=== PATIENT | female | born 1945 | race Caucasian/White ===

== ENCOUNTER 2018-01-29 23:01 | Emergency (ER) | payer MEDICARE, SELFPAY ==
[2018-01-29 23:02] VITALS: BP 180/88; PULSE 80; RESP 14; TEMP 36.9; O2SAT 95; BMI 35.9
--- NOTE | 2018-01-29 23:20 | RAD_ITS ---
STUDY: X-RAY CHEST REASON FOR EXAM: Female, 72 years old. Chest palpitations TECHNIQUE: Single AP portable view of the chest. COMPARISON: 11/14/2013. FINDINGS: The lungs are clear and expanded. There is no demonstrated pleural abnormality. Normal size heart. Normal mediastinum and tiffanie. Normal visualized pulmonary arteries. Normal visualized aortic arch and descending thoracic aorta. Normal visualized thoracic spine. Normal visualized ribs, clavicles, and shoulders. There is no demonstrated abnormality of the visualized soft tissue structures of the upper abdomen. RAD/Chest 1 View (Portable) IMPRESSION: No acute cardiopulmonary disease. Electronically Signed: Chris Daigle DO at 23:38 EST , Service support ,
--- NOTE | 2018-01-29 23:20 | EKG12_ITS ---
Test Reason : CP Blood Pressure : / mmHG Vent. Rate : 071 BPM Atrial Rate : 071 BPM P-R Int : 170 ms QRS Dur : 092 ms QT Int : 412 ms P-R-T Axes : 041 036 053 degrees QTc Int : 447 ms Sinus rhythm with frequent Premature ventricular complexes Otherwise normal ECG Confirmed by SOPHIE SHELTON, LEIGH ANN ([id number]), material expeditor MORAIMA SUN ([id number]) on 02/01/2018 3:02:52 PM Referred By: TRACY Confirmed By:LEIGH ANN BARRIOS MD
[2018-01-29] MEDS: Aspirin 81 MG TAB.CHEW 324 MG PO (23:43)
[2018-01-29 23:49] LABS: Absolute Lymphocyte Count 4.61 X10^3/ul (0.83-4.51); Absolute Neutrophil Count 5.6 X10^3/uL (2.0-7.7); Basophil# 0.03 X10^3/uL; Basophil% 0.2 % (0-1); Eosinophil# 0.39 X10^3/uL; Eosinophils% 3.2 % (0-5); Hematocrit 40.7 % (37-47); Hemoglobin 13.7 g/dl (12.0-15.0); Lymphocyte # 4.61 X10^3/ul (4.0); Lymphocyte % 38.2 % (19-41); Mean Corp Hgb Conc 33.7 g/gl (32-36); Mean Corpuscular Hgb 29.1 pg (27.0-32.0); Mean Corpuscular Volume 86.6 fL (81-99); Mean Platelet Vol. 10.7 fl (6.2-12.0); Monocyte# 1.39 X10^3/uL; Monocyte% 11.5 % (0-10); Neutrophil # 5.63 X10^3/uL (2.7-7.7); Neutrophil % 46.8 % (47-70); Platelet Count 268 K/mm3 (150-450); RBC Distribution Width SD 41.5 fl (35.1-43.9); White Blood Count 12.1 K/mm3 (4.4-11.0)
[2018-01-29 23:57] LABS: POSITIVE COUNT NO; POSITIVE DIFFERENTIAL NO; POSITIVE MORPHOLOGY NO
[2018-01-30 00:18] LABS: Anion Gap 4 (5-15); BUN 24 mg/dL (7-18); BUN/Creat Ratio 35.9 RATIO (10-20); Calcium,Total 8.9 mg/dL (8.5-10.1); Chloride 100 mmol/L (98-107); Creatinine, Serum 0.67 mg/dL (0.55-1.02); EST Glomerular Filtration Rate 92 mL/min (>60); Est Glom Filt Rate - Afr Amer 112 mL/min (>60); Glucose 103 mg/dL (74-106); Sodium Level 137 mmol/L (136-145); Thyroid Stim Hormone (TSH) 3.11 uIU/mL (0.358-3.74)
--- NOTE | 2018-01-30 00:36 | ED.DCSUM_ITS ---
- ER Visit Summary Date of Service: 01/30/18 Chief Complaint: Palpitations History of Present Illness: The patient is a 72 F who sees Anat Goodman. She reports that approximately 1030 this evening stay on the onset of an irregular heartbeat. She denies any chest pain, nausea, diaphoresis, or shortness of breath. No jaw, shoulder, or back pain. She reports that she has had this previously approximately 2 years ago. At that time she underwent a Holter monitor and a stress test that were unremarkable. 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 Review of systems: General: No fever, chills, cold sweats. Cardiovascular: No chest pain, palpitations. Respiratory: No cough, shortness of breath, dyspnea on exertion. Gastrointestinal: No abdominal pain, nausea, vomiting, diarrhea, melena, or hematochezia. Genitourinary: No dysuria, frequency, hematuria. Skin: No rash. Neuro: No headache, numbness, weakness. Physical Examination: Vitals: Stable. Afebrile. General: Well-nourished and well-developed. Head: Normocephalic atraumatic. Neck: Supple, no lymphadenopathy. No JVD. Nontender. Cardiovascular: Irregular rhythm with frequent extrasystoles. No murmurs. Respiratory: No respiratory distress. Clear to auscultation bilaterally. Abdominal: Soft, nontender, nondistended, normal bowel sounds. No guarding, rebound, or peritoneal signs. Back: Nontender. Extremities: Nontender, no edema. Skin: Normal color, no rash. Neurologic: Alert and oriented ?3. Cranial nerves II through XII are intact. Normal strength and sensation. Psych: Normal affect. Test Results: EKG is sinus at 71 with PVCs. CBC is more for white count of 12.1 , 47 7 neutrophils, monocytes of 12. Chem-7 is marked for CO2 of 33, BUN of 24 , and BUN/creatinine ratio of 35.9. Troponin is negative. TSH is normal. Chest x-ray is normal. Emergency Department Course and Treatment: Patient has been observed on the monitor. She is having frequent PVCs. Approximately 10 PVCs per minute. She has had no bigeminy or runs of nonsustained V. tach. Treatment Plan: Patient feels well and would like to go home. She will be discharged instructions to follow-up Anat Goodman in 1-2 days for further evaluation. Return to the emergency part for any worsening symptoms. Disposition: To home in improved and stable condition. Impression: 1. PVCs. This note was generated with [employer] dictation software. It may contain incorrect words, spelling, and punctuation that were not noted in review of the chart prior to signing ED Disposition - Plan for ED Patient: Disposition: Home or Assisted Living Chief Complaint: Palpitations Instructions: Premature Ventricular Contractions Referrals: Anat Ames [Primary Care Provider] - 1-2 Days if not improving
[2018-01-30] MEDS: 0.9% Normal Saline 1,000 ML 999 ML IV (01:19)
[2018-01-30 02:02] VITALS: BP 152/75; PULSE 68; RESP 13; O2SAT 98
[2018-01-30 02:34] VITALS: BP 166/92; PULSE 68; RESP 19; O2SAT 97
== END 2018-01-30 02:35 | disposition home or self-care (01) ==
PROVIDERS: Emergency Provider Emergency Medicine; Family Provider Nurse Practitioner; PCP Nurse Practitioner
DX: I49.3 Ventricular premature depolarization (principal); I10 Essential (primary) hypertension; Z79.82 Long term (current) use of aspirin; Z79.899 Other long term (current) drug therapy; Z82.49 Family history of ischemic heart disease and other diseases of the circulatory system
CPT/HCPCS: 71045; 80048; 84443; 84484; 85025; 93005; 96360; 99284; J7030; A4216

== ENCOUNTER → 2018-02-01 10:41 | Outpatient (CLI) | payer MEDICARE, SELFPAY | PROVIDERS: Family Provider Nurse Practitioner; PCP Nurse Practitioner; Visit Provider Nurse Practitioner | DX: I49.3 Ventricular premature depolarization (principal) | CPT/HCPCS: 93225; 93226 ==

== ENCOUNTER → 2018-02-19 12:50 | Outpatient (CLI) | payer MEDICARE, SELFPAY ==
--- NOTE | 2018-02-19 12:52 | ECHOL_ITS ---
Reason For Study: PVCs Procedure This was a limited 2D transthoracic echocardiogram. The study was technically difficult. Due to body habitus. Exam performed in department. Left Ventricle Normal LV size. Left ventricular systolic function is normal. The estimated ejection fraction is 60 %. No regional wall motion abnormalities noted. Mitral Valve Normal mitral valve. Tricuspid Valve Normal tricuspid valve. Trivial tricuspid valve insufficiency. Unable to estimate RV systolic pressure/pulmonary artery pressure due to technically difficult study. Aortic Valve Trisinus/trileaflet aortic valve. Pulmonic Valve Normal pulmonic valve. Great Vessels Normal aortic root. The pulmonary artery is normal size. Normal inferior vena cava. Pericardium/Pleural No pericardial effusion. MMode/2D Measurements & Calculations LVIDd: 3.9 cm IVSd: 1.6 cm Ao root diam: 2.7 cm LVIDs: 2.7 cm LVPWd: 1.4 cm RVDd: 3.3 cm FS: 31.9 % LAV(MOD-bp): 86.3 ml EDV(MOD-sp4): 86.6 ml EDV(MOD-sp2): 48.3 ml LAV(MOD-bp) Indexed: 42.9 ml/m2 ESV(MOD-sp4): 34.6 ml EF(MOD-sp2): 58.4 % LAV(MOD-sp2): 88.7 ml EF(MOD-sp4): 60.0 % LAV(MOD-sp4): 84.5 ml SV(MOD-sp4): 51.9 ml SV(MOD-sp2): 28.2 ml LA A4 area: 23.8 cm2 RA A4 area: 17.1 cm2 Interpretation Summary Normal LV size. Left ventricular systolic function is normal. The estimated ejection fraction is 60 %. Trivial tricuspid valve insufficiency. The study was technically difficult. The study was technically limited. Ordering Physician: Anat Ames Referring Physician: Anat Ames Performed By: Shamika Smith, PRICILLACS, RVT
== END ==
PROVIDERS: Family Provider Nurse Practitioner; PCP Nurse Practitioner; Visit Provider Nurse Practitioner
DX: I49.3 Ventricular premature depolarization (principal)
CPT/HCPCS: 93308

== ENCOUNTER → 2018-03-05 08:05 | Outpatient (CLI) | payer MEDICARE, SELFPAY ==
[2018-03-05 08:40] LABS: Mucous, Urine 0 SEEN /hpf (<or=2+); Red Blood Cells-Urine 0 SEEN /hpf (0-5)
[2018-03-05 08:54] LABS: Absolute Lymphocyte Count 3.15 X10^3/ul (0.83-4.51); Absolute Neutrophil Count 3.9 X10^3/uL (2.0-7.7); Basophil# 0.01 X10^3/uL; Basophil% 0.1 % (0-1); Eosinophil# 0.22 X10^3/uL; Eosinophils% 2.8 % (0-5); Hematocrit 39.3 % (37-47); Lymphocyte # 3.15 X10^3/ul (4.0); Lymphocyte % 40.8 % (19-41); Mean Corp Hgb Conc 33.1 g/gl (32-36); Mean Corpuscular Hgb 28.8 pg (27.0-32.0); Mean Corpuscular Volume 87.1 fL (81-99); Mean Platelet Vol. 10.1 fl (6.2-12.0); Monocyte# 0.42 X10^3/uL; Monocyte% 5.4 % (0-10); Neutrophil # 3.91 X10^3/uL (2.7-7.7); Neutrophil % 50.8 % (47-70); POSITIVE COUNT NO; POSITIVE DIFFERENTIAL NO; POSITIVE MORPHOLOGY NO; Platelet Count 228 K/mm3 (150-450); RBC Distribution Width CV 13.2 % (11.6-14.6); RBC Distribution Width SD 41.8 fl (35.1-43.9); Red Blood Count 4.51 M/mm3 (4.2-5.4); White Blood Count 7.7 K/mm3 (4.4-11.0)
[2018-03-05 08:55] LABS: Color, Urine Yellow (Yellow); Glucose, Dipstick Normal (Normal); Ketone-Dipstick Negative (Negative); Leukocyte Esterase-Dipstick 500 /ul (Negative); Nitrite-Dipstick Negative (Negative); Occult Blood-Urine 10 /ul (Negative); Protein-Dipstick 15 mg/dl (Negative); Specific Gravity, Urine 1.015 (1.002-1.030); Urine Bilirubin Dipstick Negative (Negative); Urine Clarity Sl. Cloudy (Clear); Urine Urobilinogen Normal (Normal); Urine pH 6.5 (5.0 - 8.0)
[2018-03-05 09:01] LABS: White Blood Cells 25-50 SEEN /hpf (0-5)
[2018-03-05 09:07] LABS: Squamous Epithelial Cells - UA 10-25 SEEN /hpf (5-10)
[2018-03-05 09:08] LABS: Bacteria 2+ /hpf (None Seen); Other Crystals-Urine 1+ /hpf (None Seen)
[2018-03-05 09:28] LABS: ALB/GLOB Ratio 0.7 RATIO (0.9-2.4); AST(SGOT) 18 U/L (15-37); Alanine Aminotransfer ALT/SGPT 24 U/L (13-56); Albumin, Serum 3.2 g/dL (3.2-5.0); Alkaline Phosphatase 110 U/L (45-117); Anion Gap 6 (5-15); BUN 15 mg/dL (7-18); BUN/Creat Ratio 20.4 RATIO (10-20); Calcium,Total 8.2 mg/dL (8.5-10.1); Chloride 104 mmol/L (98-107); Cholesterol 145 mg/dL (200); Creatinine, Serum 0.74 mg/dL (0.55-1.02); EST Glomerular Filtration Rate 83 mL/min (>60); Est Glom Filt Rate - Afr Amer 100 mL/min (>60); Globulin 4.3 g/dL (2.2-4.2); Glucose 94 mg/dL (74-106); High Density Lipoprotein 58 mg/dL; Potassium 4.1 mmol/L (3.5-5.1); Protein, Total 7.5 g/dL (6.4-8.2); Sodium Level 141 mmol/L (136-145); Triglycerides 83 mg/dL; Very Low Density Lipoprotein 17 mg/dL (5-40)
[2018-03-05 10:10] LABS: Microalbumin,Random Urine 16.9 mg/L (NO RANGE EST.); Microalbumin:Creatinine Ratio 7.5 mg/g CRE (<30 mg/g CRE)
[2018-03-06 16:12] LABS: PROEL- A/G Ratio 0.8 (0.7-1.7); PROEL- Albumin 3.3 g/dL (2.9-4.4); PROEL- Alpha-1 Globulin 0.3 g/dL (0.0-0.4); PROEL- Alpha-2 Globulin 0.8 g/dL (0.4-1.0); PROEL- Beta Globulin 1.2 g/dL (0.7-1.3); PROEL- Gamma Globulin 1.5 g/dL (0.4-1.8); PROEL- Globulin, Total 3.9 g/dL (2.2-3.9); PROEL- TOTAL PROTEIN 7.2 g/dL (6.0-8.5)
== END ==
PROVIDERS: Family Provider Nurse Practitioner; PCP Nurse Practitioner; Visit Provider Nurse Practitioner
DX: I10 Essential (primary) hypertension (principal); D72.829 Elevated white blood cell count, unspecified
CPT/HCPCS: 36415; 80053; 80061; 81001; 82043; 82570; 84165; 85025

== ENCOUNTER → 2018-06-24 10:05 | Outpatient (CLI) | payer MEDICARE, SELFPAY ==
[2018-06-24 11:05] LABS: ALB/GLOB Ratio 0.7 RATIO (0.9-2.4); AST(SGOT) 23 U/L (15-37); Alanine Aminotransfer ALT/SGPT 31 U/L (13-56); Albumin, Serum 3.3 g/dL (3.2-5.0); Alkaline Phosphatase 136 U/L (45-117); Anion Gap 2 (5-15); BUN 21 mg/dL (7-18); BUN/Creat Ratio 29.3 RATIO (10-20); Calcium,Total 8.8 mg/dL (8.5-10.1); Chloride 102 mmol/L (98-107); Creatinine, Serum 0.72 mg/dL (0.55-1.02); EST Glomerular Filtration Rate 85 mL/min (>60); Est Glom Filt Rate - Afr Amer 103 mL/min (>60); Globulin 4.6 g/dL (2.2-4.2); Glucose 96 mg/dL (74-106); Potassium 4.2 mmol/L (3.5-5.1); Protein, Total 7.9 g/dL (6.4-8.2); Sodium Level 138 mmol/L (136-145); Thyroid Stim Hormone (TSH) 1.62 uIU/mL (0.358-3.74)
== END ==
PROVIDERS: Family Provider Nurse Practitioner; PCP Nurse Practitioner; Visit Provider Nurse Practitioner
DX: I10 Essential (primary) hypertension (principal)
CPT/HCPCS: 36415; 80053; 84443

== ENCOUNTER → 2018-08-13 12:25 | Outpatient (CLI) | payer MEDICARE, SELFPAY ==
--- NOTE | 2018-08-13 12:27 | BI_ITS ---
MAMMOGRAPHY - BILATERAL SCREENING REASON FOR EXAM: Female, 72 years old. Routine annual screening examination. PERTINENT HISTORY: Non-contributory. TECHNIQUE: Digital bilateral breast nicole (3D mammographic acquisition) in the CC and MLO projections. 2-D mediolateral oblique (MLO) and craniocaudad (CC) views of both breasts were obtained. CAD: Full Field Digital Mammography with Computer Added Detection was performed. COMPARISON: Comparison is made with prior study dated July 09, 2017 and July 04, 2016. FINDINGS: Breast Composition: The breasts are heterogeneously dense, which may obscure small masses. There are no dominant masses or suspicious calcifications. No other significant abnormalities are identified. There has been no significant change since the prior study. BI/SCREENING MAMM (CAD), BILAT IMPRESSION: Stable bilateral screening mammogram. Yearly follow-up mammogram recommended. (A) ASSESSMENT CATEGORY: BIRADS Category 1: Negative. A letter regarding these results will be sent to the patient by the facility within 30 days. Approximately 10% of breast cancers are not detected by mammography. A normal mammogram should not delay biopsy of a clinically suspicious abnormality. [id number] Electronically Signed: Mike Agustin MD at 14:09 EDT Tel [phone], Service support ,
== END ==
PROVIDERS: Family Provider Nurse Practitioner; PCP Nurse Practitioner; Visit Provider Nurse Practitioner
DX: Z12.31 Encounter for screening mammogram for malignant neoplasm of breast (principal)
CPT/HCPCS: 77063; 77067

== ENCOUNTER → 2018-11-27 07:26 | Outpatient (CLI) | payer MEDICARE, SELFPAY ==
[2018-03-06 14:34] VITALS: BMI 40.4
[2018-11-27 09:28] LABS: ALB/GLOB Ratio 0.7 RATIO (0.9-2.4); AST(SGOT) 19 U/L (15-37); Alanine Aminotransfer ALT/SGPT 26 U/L (13-56); Albumin, Serum 3.2 g/dL (3.2-5.0); Alkaline Phosphatase 131 U/L (45-117); Anion Gap 8 (5-15); BUN 17 mg/dL (7-18); BUN/Creat Ratio 26.1 RATIO (10-20); Calcium,Total 8.7 mg/dL (8.5-10.1); Chloride 101 mmol/L (98-107); Cholesterol 162 mg/dL (200); Creatinine, Serum 0.65 mg/dL (0.55-1.02); EST Glomerular Filtration Rate 95 mL/min (>60); Est Glom Filt Rate - Afr Amer 115 mL/min (>60); Globulin 4.5 g/dL (2.2-4.2); Glucose 108 mg/dL (74-106); High Density Lipoprotein 68 mg/dL; Potassium 4.1 mmol/L (3.5-5.1); Protein, Total 7.7 g/dL (6.4-8.2); Sodium Level 139 mmol/L (136-145); Thyroid Stim Hormone (TSH) 1.69 uIU/mL (0.358-3.74); Triglycerides 84 mg/dL; Very Low Density Lipoprotein 17 mg/dL (5-40)
== END ==
PROVIDERS: Family Provider Nurse Practitioner; PCP Nurse Practitioner; Referring Provider Nurse Practitioner; Visit Provider Nurse Practitioner
DX: Z00.00 Encounter for general adult medical examination without abnormal findings (principal); I10 Essential (primary) hypertension
CPT/HCPCS: 36415; 80053; 80061; 84443

== ENCOUNTER → 2019-05-13 06:10 | Outpatient (CLI) | payer MEDICARE, SELFPAY ==
--- NOTE | 2019-05-13 11:42 | STRESSREP ---
Stress Test Report Date: 05-13-19 Procedure: Exercise tolerance test/imaging study Indications: CAD Consent: Per the patient Procedure: The patient exercised on a Wei protocol for 6 minutes of completing stage II achieving a peak heart rate of 144 bpm (97 % predicted maximal heart rate) with a peak blood pressure 194/92 mmHg and a peak MET capacity of 7 METs. The baseline ECG demonstrated normal sinus rhythm. The peak exercise ECG demonstrated [id number] nonspecific ST segment variability. There were no cardiac dysrhythmias pretest, during exercise, or recovery. The functional capacity was considered average. There was no complaint of chest discomfort during exercise or recovery. The examination was discontinued secondary to dyspnea. Impression: 1. Technically adequate (percent predicted maximal heart rate greater than 85%) exercise tolerance test 2. Peak exercise ECG with [id number] nonspecific ST segment variability 3. There were no cardiac dysrhythmias pretest, during exercise, or recovery 4. Nuclear images pending Myocardial perfusion imaging study: Technique: The patient was injected with 11.9 mCi of technetium 99m Cardiolite and subsequently rest SPECT Cardiolite nuclear imaging was obtained in the horizontal long, vertical long, and short axis views. The patient exercised on a Wei protocol for 6 minutes of completing stage II achieving a peak heart rate of 144 bpm (97 % predicted maximal heart rate) with a peak blood pressure 194/92 mmHg and a peak MET capacity of 7 METs. The patient was injected with 33.7 mCi of technetium 99m Cardiolite and subsequently stress SPECT Cardiolite nuclear imaging was obtained in the horizontal long, vertical long, and short axis views. A gated Cardiolite study at peak stress was obtained. Interpretation: Rest and stress SPECT Cardiolite nuclear imaging status post realignment, normalization, and attenuation correction, demonstrates relative uniform tracer uptake and myocardial perfusion appearing within normal limits. There is end systolic thickening and brightening. The gated Cardiolite study demonstrates myocardial thickening and inward wall motion. The reported LVEF is 71 %. Impression: 1. Rest and stress SPECT Cardiolite nuclear imaging demonstrate relative uniform tracer uptake and myocardial perfusion appearing within normal limits. 2. The gated Cardiolite study reports an LVEF of 71 %. This note was generated with [employer] ([employer]ation software. It may contain incorrect words, spelling, and punctuation that were not noted in checking the note before signing.
== END ==
PROVIDERS: Family Provider Nurse Practitioner; PCP Nurse Practitioner; Referring Provider Nurse Practitioner; Visit Provider Nurse Practitioner
DX: I25.10 Atherosclerotic heart disease of native coronary artery without angina pectoris (principal)
CPT/HCPCS: 78452; 93017; A9500; A4216

== ENCOUNTER → 2019-08-19 14:06 | Outpatient (CLI) | payer MEDICARE, SELFPAY ==
[2019-05-20 11:07] VITALS: BMI 39.3
--- NOTE | 2019-08-19 14:09 | BI_ITS ---
MAMMOGRAPHY - BILATERAL SCREENING REASON FOR EXAM: Female, 73 years old. Routine annual screening examination. PERTINENT HISTORY: Non-contributory. Remote left breast aspiration. TECHNIQUE: Digital bilateral breast monserrat (3D mammographic acquisition) in the CC and MLO projections. 2-D mediolateral oblique (MLO) and craniocaudad (CC) views of both breasts were obtained. CAD: Full Field Digital Mammography with Computer Added Detection was performed. COMPARISON: Comparison is made with prior study dated August 13, 2018 and July 09, 2017. FINDINGS: Breast Composition: The breasts are heterogeneously dense, which may obscure small masses. There are no dominant masses or suspicious calcifications. Stable small benign-appearing bilateral axillary lymph nodes. Stable bilateral secretory calcifications. No other significant abnormalities are identified. There has been no significant change since the prior study. BI/SCREEN MAMM (CAD) W/MONSERRAT BILAT IMPRESSION: Stable bilateral screening mammogram. Yearly follow-up mammogram recommended. (A) ASSESSMENT CATEGORY: BIRADS Category 2: Benign. A letter regarding these results will be sent to the patient by the facility within 30 days. Approximately 10% of breast cancers are not detected by mammography. A normal mammogram should not delay biopsy of a clinically suspicious abnormality. [id number] Electronically Signed: Mike Agustin, at 15:21 EDT , Service support ,
== END ==
PROVIDERS: Family Provider Nurse Practitioner; PCP Nurse Practitioner; Referring Provider Nurse Practitioner; Visit Provider Nurse Practitioner
DX: Z12.31 Encounter for screening mammogram for malignant neoplasm of breast (principal)
CPT/HCPCS: 77063; 77067

== ENCOUNTER → 2019-12-30 07:49 | Outpatient (CLI) | payer MEDICARE, SELFPAY ==
[2019-11-25 08:31] VITALS: BMI 38.6
--- NOTE | 2019-12-30 07:52 | CDU_ITS ---
Reason For Study: Vision changes Rt. Velocities/BP Lt. Velocities/BP Prox CCA 86.5/16 cm/sec. Prox CCA 99.8/22.5 cm/sec. Mid CCA 78.6/14.7 cm/sec. Mid CCA 83.9/17.6 cm/sec. Dist CCA 72.1/18.6 cm/sec. Dist CCA 61.8/11.4 cm/sec. Prox ICA 59.7/16.8 cm/sec. Prox ICA 53.2/13.9 cm/sec. Mid ICA 69.5/16.8 cm/sec. Mid ICA 55.6/16.3 cm/sec. Dist ICA 97.4/29.8 cm/sec. Dist ICA 70.4/22.5 cm/sec. Rt. ICA/CCA = 1.2. Lt. ICA/CCA = 0.8. Prox ECA 121.1/13.3 cm/sec. Prox ECA 83.9/11.4 cm/sec. Rt. Vert. 42.8/13.5 cm/sec. Lt. Vert. 66.3/14.6 cm/sec. Right Extracranial There is intimal thickening but no significant atherosclerotic plaque noted in the right common carotid artery. There is heterogeneous, irregular atherosclerotic plaque noted in the right internal carotid artery. There is intimal thickening but no significant atherosclerotic plaque noted in the right external carotid artery. Antegrade flow is noted in the right vertebral artery. Left Extracranial There is intimal thickening but no significant atherosclerotic plaque noted in the left common carotid artery. There is heterogeneous, smooth atherosclerotic plaque noted in the left internal carotid artery. There is intimal thickening but no significant atherosclerotic plaque noted in the left external carotid artery. Antegrade flow is noted in the left vertebral artery. Procedure Carotid Duplex [id number]. Exam performed in department. Interpretation Summary Mild (<50%) stenosis right extracranial internal carotid. Mild (<50%) stenosis left extracranial internal carotid. Flow within the vertebral arteries is antegrade bilaterally. Ordering Physician: Anat Ames Referring Physician: Anat Ames Performed By: Elisa Seals RVT
== END ==
PROVIDERS: PCP Nurse Practitioner; Referring Provider Nurse Practitioner; Visit Provider Nurse Practitioner
DX: R42 Dizziness and giddiness (principal); H53.9 Unspecified visual disturbance
CPT/HCPCS: 93880

== ENCOUNTER → 2020-03-22 07:09 | Outpatient (CLI) | payer MEDICARE, SELFPAY ==
[2019-11-25 08:31] VITALS: BMI 38.6
[2020-03-22 08:16] LABS: Absolute Lymphocyte Count 3.98 X10^3/uL (0.83-4.51); Absolute Neutrophil Count 4.4 X10^3/uL (2.0-7.7); Basophil# 0.04 X10^3/uL; Basophil% 0.4 % (0-1); Eosinophil# 0.25 X10^3/uL; Eosinophils% 2.6 % (0-5); Hematocrit 42.3 % (37-47); Hemoglobin 13.9 g/dL (12.0-15.0); Lymphocyte # 3.98 X10^3/ul (4.0); Lymphocyte % 41.3 % (19-41); Mean Corp Hgb Conc 32.9 g/dL (32-36); Mean Corpuscular Hgb 29.2 pg (27.0-32.0); Mean Corpuscular Volume 88.9 fL (81-99); Mean Platelet Vol. 11.1 fl (6.2-12.0); Monocyte% 9.3 % (0-10); NRBC Flagged by Analyzer 0 % (0-5); Neutrophil # 4.42 X10^3/uL (2.7-7.7); Platelet Count 296 K/mm3 (150-450); RBC Distribution Width CV 12.5 % (11.6-14.6); RBC Distribution Width SD 40.9 fl (35.1-43.9); Red Blood Count 4.76 M/mm3 (4.2-5.4); White Blood Count 9.6 K/mm3 (4.4-11.0)
[2020-03-22 08:21] LABS: ALB/GLOB Ratio 0.8 RATIO (0.9-2.4); AST(SGOT) 17 U/L (15-37); Alanine Aminotransfer ALT/SGPT 24 U/L (13-56); Albumin, Serum 3.4 g/dL (3.2-5.0); Alkaline Phosphatase 99 U/L (45-117); Anion Gap 4 (5-15); BUN 18 mg/dL (7-18); BUN/Creat Ratio 27.5 RATIO (10-20); Calcium,Total 9.2 mg/dL (8.5-10.1); Chloride 103 mmol/L (98-107); Cholesterol 155 mg/dL (200); Creatinine, Serum 0.66 mg/dL (0.55-1.02); EST Glomerular Filtration Rate 94 mL/min (>60); Est Glom Filt Rate - Afr Amer 114 mL/min (>60); Globulin 4.3 g/dL (2.2-4.2); Glucose 102 mg/dL (74-106); High Density Lipoprotein 66 mg/dL; Potassium 3.9 mmol/L (3.5-5.1); Protein, Total 7.7 g/dL (6.4-8.2); Sodium Level 139 mmol/L (136-145); Triglycerides 74 mg/dL; Very Low Density Lipoprotein 15 mg/dL (5-40)
[2020-03-22 08:47] LABS: Vitamin D,25 Hydroxy 47.4 ng/mL
== END ==
PROVIDERS: PCP Nurse Practitioner; Referring Provider Nurse Practitioner; Visit Provider Nurse Practitioner
DX: I10 Essential (primary) hypertension (principal); E55.9 Vitamin D deficiency, unspecified
CPT/HCPCS: 36415; 80053; 80061; 82306; 85025

== ENCOUNTER → 2020-09-02 14:37 | Outpatient (CLI) | payer MEDICARE, SELFPAY ==
[2020-07-09 09:02] VITALS: BMI 38.6
--- NOTE | 2020-09-02 14:50 | BI_ITS ---
MAMMOGRAPHY - BILATERAL SCREENING REASON FOR EXAM: Female, 74 years old. Routine annual screening examination. PERTINENT HISTORY: NO FAM HX - LT ASPIRATION IN THE 1970S TECHNIQUE: Digital bilateral breast monserrat (3D mammographic acquisition) in the CC and MLO projections. 2-D mediolateral oblique (MLO) and craniocaudad (CC) views of both breasts were obtained. CAD: Full Field Digital Mammography with Computer Added Detection was performed. COMPARISON: 08/19/2019 and 08/13/2018. FINDINGS: Breast Composition: The breasts are heterogeneously dense, which may obscure small masses. There are no dominant masses or suspicious calcifications. No other significant abnormalities are identified. BI/SCREEN MAMM (CAD) W/MONSERRAT BILAT IMPRESSION: Stable bilateral screening mammogram. Yearly follow-up mammogram recommended. (A) ASSESSMENT CATEGORY: BIRADS Category 2: Benign. A letter regarding these results will be sent to the patient by the facility within 30 days. Approximately 10% of breast cancers are not detected by mammography. A normal mammogram should not delay biopsy of a clinically suspicious abnormality. [id number] Electronically Signed: Pranav Blanco, at 16:30 EDT Tel , Service support ,
== END ==
PROVIDERS: PCP Nurse Practitioner; Referring Provider Nurse Practitioner; Visit Provider Nurse Practitioner
DX: Z12.31 Encounter for screening mammogram for malignant neoplasm of breast (principal)
CPT/HCPCS: 77063; 77067

== ENCOUNTER 2020-10-13 12:22 | Outpatient (RCR) | payer MEDICARE, SELFPAY ==
[2020-07-09 09:02] VITALS: BMI 38.6
--- NOTE | 2020-10-13 13:59 | HP.PTEVAL_ITS ---
Patient's Visit Information CHUCKY LE is a 74 year old F referred to Physical Therapy by CHARITY Tran with a diagnosis of Left Knee Pain. Date of Evaluation: 10/13/20 Physical Therapist: Idania Rosario DPT - Visit Plan Frequency: 2x /Week Duration: 4 Weeks Plan: Focus on LE and core strength/stabilization. *Would like to be treated in a room secondary to no masks in gym- assess comfort level - Subjective Prior to February she walked daily 30 min- in February she noticed tightness and swelling in the left knee. In April she saw Dr. Osorio who reported she had a Bakers Cyst- did x-rays and told her to take Ibuprofen. In June it buckled so she saw Td for a second opinion- Bakers Cyst- no meniscal tear- lose weight and ride a bike. Here she is September- she reports it feels tight but she not resumed her walking. She has pain on the medial aspect of the medial joint line. X-rays showed moderate OA. She did not have injections. The pain is sharp and shooting. The sharp pains happen more at night when she is in bed- normally once a day. Not always when she is rolling side to side. Worst: 5/10 She reports the pain is stabbing. Best: 0/10. Eases: rubs it down a little bit- but the pain goes away quickly. No radiating pain. No N/T. The buckling only happened 1x and has not happened again- does not feel unstable. No problems going up/down the stairs- does them multiple times a day. Sleep: disturbed- side sleeper- does not sleep with a pillow between her knees. No trauma- no back problems. PMHx/Meds: No change since saw MD - Objective Posture: FH, RS- can correct with verbal cues but does not maintain. Gait: no deviation noted. Stairs: asc/desc 8 recip with 1 HR no deviation noted. HR/TR: able with UE A. SLS: weight shift but unable to SLS for more than 3 s econds. Sensation: WNL. ROM: 0-125 degrees. Strength: Core: fair minus, Hip: 4/5 throughout, Knee: 5/5, Ankle: 5/5. Flex: HS: mild Quad: mild - Goals Goal 1:: Patient will be I with HEP and progression Goal Time Frame: 4-6 Weeks Goal 2:: Patient will report no pain for 1 week in the left knee Goal Time Frame: 4-6 Weeks Goal 3:: Patient will maintain proper posture t/o tx session to demo increased core s/s Goal Time Frame: 4-6 Weeks Goal 4:: Patient will SLS for 10 sec without LOB Goal Time Frame: 4-6 Weeks - Rehabilitation Potential Physical Therapy Diagnosis: Patient presents with hypomobility- she has muscular imbalance and decrease endurnace in the core and LE leading to increased pain while resting at night Rehabilitation Potential: Good - Anticipated Interventions Patient/Client Instruction: Educate patient on: Benefits of Fitness Program Therapeutic Exercise to Include: Strength training, Endurance training, Balance training, Agility training, Body mechanics, Postural training, Flexibilty training, Gait and locomotor training, Neuromotor development, Dynamic Lumbar Stabilization, Scapular Strength/Stabilization TENS: Yes Cryotherapy (ice pack, ice massage): Yes Thermo therapy (hot pack): Yes Ultrasound (thermal/non thermal): Yes For the Purpose of:: To improve muscle performance and motor function Thank you for the opportunity to evaluate your patient. For Medicare and Medicare HMO plans, please review the plan of care and approve it. It will need to be FAXED BACK to us at [phone] for Medicare purposes. For Medicare only, by signing this I certify the plan of care. Please let me know if there are questions or concerns regarding this plan of care. Physician Signature: Date:
--- NOTE | 2020-11-04 11:26 | HP.PT.NRP ---
CHUCKY LE was seen in my office for initial evaluation on 10/13/20. The following Plan of Care was established for this patient: Initial Frequency: 2x /Week Initial Duration: 4 Weeks Patient/Client Instruction: Educate patient on: Benefits of Fitness Program Therapeutic Exercise to Include: Strength training, Endurance training, Balance training, Agility training, Body mechanics, Postural training, Flexibilty training, Gait and locomotor training, Neuromotor development, Dynamic Lumbar Stabilization, Scapular Strength/Stabilization TENS: Yes Cryotherapy (ice pack, ice massage): Yes Thermo therapy (hot pack): Yes Ultrasound (thermal/non thermal): Yes For the Purpose of:: To improve muscle performance and motor function This patient was last seen in our office . Pertinent comments regarding their Physical therapy will appear below: Patient fell and fractured UE. Will follow up with PCP and return to PT for further evaluation as needed. Discharge at this time. At this point I will be discontinuing this patient from physical therapy. I would be happy to see this patient again in the future if found appropriate by the physician. Thank you! WANDA JacksonT
== END 2020-10-13 19:00 | disposition home or self-care (01) ==
LOC: PT 12:22
PROVIDERS: PCP Nurse Practitioner; Referring Provider Nurse Practitioner; Visit Provider Nurse Practitioner
DX: M25.562 Pain in left knee (principal)
CPT/HCPCS: 97110; 97161

== ENCOUNTER → 2020-10-15 16:05 | Outpatient (CLI) | payer MEDICARE, SELFPAY ==
[2020-07-09 09:02] VITALS: BMI 38.6
--- NOTE | 2020-10-15 16:14 | MRI_ITS ---
STUDY: MRI LEFT KNEE REASON FOR EXAM: Female, 74 years old. Left knee pain TECHNIQUE: Standardized fat and water weighted pulse sequences were obtained in all 3 orthogonal planes. COMPARISON: None. FINDINGS: Moderate size horizontal tear is present in the inner one third aspect root insertion of the posterior horn of medial meniscus. Intrasubstance signal abnormality is present in the remnant and in the body of the medial meniscus. Normal anterior horn. There is diffuse, moderate to full thickness articular cartilage loss of the medial femorotibial compartment. There is mild osteoarthritic spur formation of the medial knee compartment. Normal medial collateral ligamentous complex (MCL). Normal distal semimembranosus, gracilis and semitendinosus tendons. Normal lateral meniscus. There is diffuse, less than 50% thickness articular cartilage loss of the lateral femorotibial compartment. There is mild osteoarthritic spur formation of the lateral knee compartment. Normal proximal tibiofibular articulation. Normal lateral collateral (fibular) ligament. Normal popliteus tendon. Normal biceps femoris tendon. Normal anterior cruciate ligament (ACL). Normal posterior cruciate ligament (PCL). Normal congruent patellofemoral articulation. There is diffuse, full thickness articular cartilage loss of the patellofemoral compartment in addition the subchondral cystic changes and cortical spurring. Normal medial and lateral patellar retinaculum. Normal quadriceps tendon. Normal patellar tendon. Normal Hoffa''s fat pad. A small joint effusion is present. Mild subcutaneous edema is also present. The soft tissues are unremarkable. The otherwise visualized osseous structures are unremarkable. MRI/Lower Ext Joint Only (Routine) IMPRESSION: 1. Moderate size horizontal tear is present in the inner one third aspect root insertion of the posterior horn of medial meniscus. Intrasubstance signal abnormality is present in the remnant and in the body of the medial meniscus. Normal anterior horn. 2. Tricompartmental osteoarthritis 3. Moderate to full-thickness loss of cartilage in the medial and patellofemoral compartments. Electronically Signed: Cm South MD at 23:21 EST , Service support ,
== END ==
PROVIDERS: PCP Nurse Practitioner; Referring Provider Nurse Practitioner; Visit Provider Nurse Practitioner
DX: M17.12 Unilateral primary osteoarthritis, left knee (principal)
CPT/HCPCS: 73721

== ENCOUNTER 2020-10-16 13:52 | Emergency (ER) | payer MEDICARE, SELFPAY ==
[2020-07-09 09:02] VITALS: BMI 38.6
[2020-10-16 13:53] VITALS: BP 178/88; PULSE 70; RESP 16; TEMP 36.1; O2SAT 98; BMI 37.5
--- NOTE | 2020-10-16 14:21 | RAD_ITS ---
STUDY: X-RAY - LEFT ELBOW REASON FOR EXAM: Female, 74 years old. FALL TODAY, PAIN, MAINLY ELBOW AREA TECHNIQUE: 3 view(s) of the elbow. COMPARISON: None. FINDINGS: There is an acute fracture of the proximal radius noted. Elbow joint is poorly included on this examination however. Elbow joint effusion. IMPRESSION: Acute fracture through the proximal radius. Elbow joint effusion. Electronically Signed: Neto Alvarado, at 15:03 EST Tel , Service support , RAD/Elbow min 3 Views
--- NOTE | 2020-10-16 14:21 | RAD_ITS ---
STUDY: X-RAY - LEFT HUMERUS REASON FOR EXAM: Female, 74 years old. FALL TODAY, PAIN, MAINLY ELBOW AREA TECHNIQUE: 3 view(s) of the humerus. COMPARISON: None. FINDINGS: 3 views of the left humerus demonstrate no evidence for acute fractures or dislocation. Overall alignment appears satisfactory. Glenohumeral joint is grossly intact. IMPRESSION: No evidence for acute left-sided humeral fracture Electronically Signed: Neto Alvarado, at 15:05 EST Tel , Service support , RAD/Humerus min 2 Views
--- NOTE | 2020-10-16 14:21 | RAD_ITS ---
STUDY: X-RAY - LEFT RADIUS AND ULNA REASON FOR EXAM: Female, 74 years old. FALL TODAY, PAIN, MAINLY ELBOW AREA TECHNIQUE: 2 view(s) of the forearm. COMPARISON: None. FINDINGS: 2 views of the left forearm demonstrate no evidence for acute fractures or dislocation of the radial or the ulnar shaft. Proximal radial fracture is seen. IMPRESSION: No definite evidence for radial or ulnar shaft fractures. Proximal radial fracture through the radial head neck junction is noted Electronically Signed: Neto Alvarado, at 15:04 EST Tel , Service support , RAD/Forearm 2 Views
--- NOTE | 2020-10-16 15:18 | ED.DCSUM_ITS ---
- ER Visit Summary Date of Service: 10/16/20 Chief Complaint: Fall History of Present Illness: The patient is a 74 F who presents after a fall that occurred today. Patient states she tripped and fell. Patient states she landed on her left arm. Patient states her pain is sharp but only with movement. Pat ient states it has been better with rest. Patient denies any paresthesias or weakness. Patient denies any head injury or loss of consciousness. Patient denies any other injuries. Physical Examination: Vital signs are stable. Patient is afebrile. Patient is in no acute distress. Musculoskeletal exam reveals tenderness over the left elbow over the radial head. There is minimal tenderness over the left humerus and left forearm. There are no deformities noted. Range of motion was limited in all motions of the left elbow secondary to pain. Strength is 5/5 in the radi al, median, and ulnar areas. Radial pulses are equal bilaterally. There are no sensory deficits noted. Test Results: X-rays of the left elbow were obtained. There is a real head fracture on my interpretation. There is no displacement. X-rays of the left forearm were obtained. On my interpretation, the left radial head fracture was again noted. There are no other fractures noted. X-rays of the left humerus were obtained. On my interpretation there is no acute fracture. The radiologist also interpreted all of these x-rays and agreed. Emergency Department Course and Treatment: Patient was placed in a sling. Patient was instructed to follow-up with her primary care physician in 5 to 7 days. Patient was given a referral for orthopedics to follow-up as needed. Patient understood and was agreeable with the plan. All questions were answered. Disposition: Discharge home Impression: 1. Acute fracture radial head left elbow This note was generated with [employer] dictation software. It may contain incorrect words, spelling, and punctuation that were not noted in review of the chart prior to signing ED Disposition - Plan for ED Patient: Disposition: Home or Assisted Living Diagnosis: Left radial head fracture Instructions: ED Fx Radial Head Referrals: Anat Ames PROFILE MILL OPERATOR TAPE CONTROL, PROFILE MILL OPERATOR TAPE CONTROL-C [Primary Care Provider] - 5-7 Days Jhonny Osorio DO [STAFF PHYSICIAN] - 5-7 Days
== END 2020-10-16 15:51 | disposition home or self-care (01) ==
PROVIDERS: Emergency Provider Emergency Medicine; PCP Nurse Practitioner
DX: S52.125A Nondisplaced fracture of head of left radius, initial encounter for closed fracture (principal); W01.0XXA Fall on same level from slipping, tripping and stumbling without subsequent striking against object, initial encounter; Y93.9 Activity, unspecified; Y92.9 Unspecified place or not applicable; Y99.9 Unspecified external cause status; I10 Essential (primary) hypertension; Z79.82 Long term (current) use of aspirin; Z79.899 Other long term (current) drug therapy
CPT/HCPCS: 73060; 73080; 73090; 99284; A4216

== ENCOUNTER 2021-01-19 09:23 | Outpatient (RCR) | payer MEDICARE, SELFPAY ==
[2020-11-23 11:05] VITALS: BMI 38.6
== END 2021-01-19 23:59 ==
LOC: IMMUN 09:23
PROVIDERS: PCP Nurse Practitioner; Visit Provider Family Medicine
DX: Z23 Encounter for immunization (principal)
CPT/HCPCS: 0011A; 0012A; 91301

== ENCOUNTER → 2021-08-31 09:09 | Outpatient (CLI) | payer MEDICARE, SELFPAY ==
[2021-08-31 10:20] LABS: Absolute Lymphocyte Count 3.26 X10^3/uL (0.83-4.51); Absolute Neutrophil Count 4.1 X10^3/uL (2.0-7.7); Basophil# 0.04 X10^3/uL; Basophil% 0.5 % (0-1); Eosinophil# 0.18 X10^3/uL; Eosinophils% 2.2 % (0-5); Hematocrit 41.4 % (37-47); Hemoglobin 13.8 g/dL (12.0-15.0); Lymphocyte # 3.26 X10^3/ul (0.83-4.51); Lymphocyte % 39.2 % (19-41); Mean Corp Hgb Conc 33.3 g/dL (32-36); Mean Corpuscular Hgb 29.2 pg (27.0-32.0); Mean Corpuscular Volume 87.7 fL (81-99); Monocyte# 0.73 X10^3/uL; Monocyte% 8.8 % (0-10); NRBC Flagged by Analyzer 0 % (0-5); Neutrophil # 4.09 X10^3/uL (2.7-7.7); Neutrophil % 49.2 % (47-70); Platelet Count 249 K/mm3 (150-450); RBC Distribution Width CV 12.7 % (11.6-14.6); RBC Distribution Width SD 40.4 fl (35.1-43.9); Red Blood Count 4.72 M/mm3 (4.2-5.4); White Blood Count 8.3 K/mm3 (4.4-11.0)
[2021-08-31 10:50] LABS: Microalbumin,Random Urine 16.8 mg/L (NO RANGE EST.); Microalbumin:Creatinine Ratio 12.3 mg/g CRE (<30 mg/g CRE)
[2021-08-31 11:12] LABS: ALB/GLOB Ratio 0.7 RATIO (0.9-2.4); AST(SGOT) 16 U/L (15-37); Alanine Aminotransfer ALT/SGPT 18 U/L (13-56); Albumin, Serum 3.2 g/dL (3.2-5.0); Alkaline Phosphatase 84 U/L (45-117); Anion Gap 6 (5-15); BUN 13 mg/dL (7-18); BUN/Creat Ratio 19.1 RATIO (10-20); Calcium,Total 8.8 mg/dL (8.5-10.1); Chloride 102 mmol/L (98-107); Cholesterol 155 mg/dL (200); Creatinine, Serum 0.68 mg/dL (0.55-1.02); EST Glomerular Filtration Rate 90 mL/min (>60); Est Glom Filt Rate - Afr Amer 109 mL/min (>60); Globulin 4.3 g/dL (2.2-4.2); Glucose 98 mg/dL (74-106); High Density Lipoprotein 54 mg/dL; Protein, Total 7.5 g/dL (6.4-8.2); Sodium Level 139 mmol/L (136-145); Thyroid Stim Hormone (TSH) 1.31 uIU/mL (0.358-3.74); Triglycerides 97 mg/dL; Very Low Density Lipoprotein 19 mg/dL (5-40)
== END ==
PROVIDERS: PCP Nurse Practitioner; Referring Provider Nurse Practitioner; Visit Provider Nurse Practitioner
DX: E11.9 Type 2 diabetes mellitus without complications (principal)
CPT/HCPCS: 36415; 80053; 80061; 82043; 82570; 84443; 85025

== ENCOUNTER → 2021-09-06 14:46 | Outpatient (CLI) | payer MEDICARE, SELFPAY ==
--- NOTE | 2021-09-06 14:48 | BI_ITS ---
MAMMOGRAPHY - BILATERAL SCREENING REASON FOR EXAM: Female, 75 years old. Routine annual screening examination. PERTINENT HISTORY: Non-contributory. TECHNIQUE: Digital bilateral breast mnoserrat (3D mammographic acquisition) in the CC and MLO projections. 2-D mediolateral oblique (MLO) and craniocaudad (CC) views of both breasts were obtained. CAD: Full Field Digital Mammography with Computer Added Detection was performed. COMPARISON: Comparison is made with prior study 09/02/2020 and 08/19/2019. FINDINGS: Breast Composition: The breasts are heterogeneously dense, which may obscure small masses. There are no dominant masses or suspicious calcifications. Stable bilateral scattered microcalcifications more prominent in the right breast. Stable small benign-appearing bilateral axillary lymph nodes. No other significant abnormalities are identified. There has been no significant change since the prior study. BI/SCRN MAMM (CAD)W/MONSERRAT BILAT IMPRESSION: Stable bilateral screening mammogram. Yearly follow-up mammogram recommended. (A) ASSESSMENT CATEGORY: BIRADS Category 2: Benign. A letter regarding these results will be sent to the patient by the facility within 30 days. Approximately 10% of breast cancers are not detected by mammography. A normal mammogram should not delay biopsy of a clinically suspicious abnormality. [id number] Electronically Signed: Mike Agustin MD at 15:38 EDT , Service support ,
== END ==
PROVIDERS: PCP Nurse Practitioner; Referring Provider Nurse Practitioner; Visit Provider Nurse Practitioner
DX: Z12.31 Encounter for screening mammogram for malignant neoplasm of breast (principal)
CPT/HCPCS: 77063; 77067

== ENCOUNTER 2022-02-28 13:45 | Outpatient (CLI) | payer MEDICARE, SELFPAY ==
--- NOTE | 2022-02-28 14:17 | BD_ITS ---
STUDY: DUAL ENERGY X-RAY ABSORPTIOMETRY / DXA REASON FOR EXAM: Female, 76 years old. 627.8Menopausal postmenopausalBONE DENSITY REASON FOR EXAM TECHNIQUE: Bone Mineral Density (BMD) measurements of lumbar spine and bilateral hips were obtained. COMPARISON: Comparison is made with prior study dated 09/04/2017. FINDINGS: Lumbar Spine (L1-L4): g/cm2 (0.853) / T-score (-1.8) / Z-score (0.6) Findings are suggestive of osteopenia with a moderate fracture risk. Left Femur Total: g/cm2 (0.906) / T-score (-0.3) / Z-score (1.5) Left Femoral Neck: g/cm2 (0.655) / T-score (-1.7) / Z-score (0.3) Right Femur Total: g/cm2 (0.964) / T-score (0.2) / Z-score (2.0) Right Femoral Neck: g/cm2 (0.707) / T-score (-1.3) / Z-score (0.8) The T-Scores on the most recent prior examination were: Lumbar Spine (L1-L4): There has been worsening of bone density since the previous examination. Left Femur Total: which represents an improvement of 2%. Right Femur Total: which represents an improvement of 0.4%. BD/Dexa Bone Density Study IMPRESSION: The patient is considered osteopenic as outlined below according to World Luis Armando Organization (WHO) criteria with a moderate fracture risk. There has been improvement of bone density since the previous examination. Reference Information: The T-score is the number of standard deviations above or below the standard which is normal for young adults at their peak bone mineral density. The World Health Organization (WHO) interprets the T-scores as follows: Above -1 Normal bone density Between -1 and -2.5 Osteopenia Equal to / or below -2.5 Osteoporosis As a practical clinical guideline, osteopenia may be graded as follows: Mild -1 through -1.5 Moderate -1.6 through -2.0 Severe -2.1 through -2.4 The Z-score is the number of standard deviations above or below age-matched controls. A Z-score of less than -1.5 would be considered abnormal. References: 1. NIH Osteoporosis and Related Bone Diseases www osteo.org 2. International Society for Clinical Densitometry www iscd.org 3. National Osteoporosis Foundation www nof.org Electronically Signed: Mike Agustin MD at 11:09 EDT ,
== END 2022-02-28 23:59 | disposition home or self-care (01) ==
PROVIDERS: PCP Nurse Practitioner; Referring Provider Student in an Organized Health Care Education/Training Program; Visit Provider Student in an Organized Health Care Education/Training Program
DX: M85.80 Other specified disorders of bone density and structure, unspecified site (principal); Z78.0 Asymptomatic menopausal state
CPT/HCPCS: 77080

== ENCOUNTER → 2022-04-10 | Outpatient (CLI) | payer MEDICARE, SELFPAY ==
--- NOTE | 2022-04-10 15:35 | MRI_ITS ---
STUDY: MRI BRAIN WITH AND WITHOUT CONTRAST ENHANCEMENT OF 1557 HOURS ON 04/10/2020 REASON FOR EXAM: 76-year-old female with vision change. TECHNIQUE: Standardized multiplanar fat and water weighted pulse sequences were obtained. IV 20ml Dotarem was administered for the contrast portion of the examination. 11 sequences were obtained. COMPARISON: None. FINDINGS: Normal size of the ventricles and extra-axial spaces for the patient''s age. Normal white matter tracts of the supratentorial brain. Normal bilateral basal ganglia. Normal thalami. There is no extra-axial fluid accumulation. Normal flow voids within the major intracranial circulation suggesting patency by spin echo criteria. Normal venous enhancement. There is no enhancing intra-axial or extra-axial abnormality. Normal sella turcica, pituitary gland, infundibular stalk, optic chiasm and hypothalamus. Normal tectal plate and pineal gland. Normal midbrain, leeann and medulla. Normal cerebellum. Normal basal cisterns. Normal bilateral temporal bones. Normal bilateral internal auditory canals. No demonstrated orbital abnormality, within the constraints of a routine brain study. Normal visualized paranasal sinuses. Normal calvarium and skull base. Normal visualized soft tissue structures. Normal visualized upper cervical spine. MRI/Brain W/WO Contrast IMPRESSION: 1. Normal unenhanced and enhanced MRI of the brain. 2. Normal orbits, globes, optic nerves, and chiasm. Normal sella and pituitary. 3. No evidence of ischemic or hemorrhagic cerebral infarction or intracranial neoplasms. Electronically Signed: Joe Masters MD at 17:09 EDT ,
[2022-04-10 15:46] LABS: CREATININE FINGERSTICK < 0.9 mg/dL (0.55-1.02); EGFR FINGERSTICK > 60.0000 mL/min (>60)
== END | disposition home or self-care (01) ==
PROVIDERS: PCP Nurse Practitioner; Visit Provider Internal Medicine
DX: H53.9 Unspecified visual disturbance (principal)
CPT/HCPCS: 70553; A9575

== ENCOUNTER → 2022-04-11 | Outpatient (CLI) | payer MEDICARE, SELFPAY ==
--- NOTE | 2022-04-11 09:56 | CDU_ITS ---
Reason For Study: Carotid artery plaque Rt. Velocities/BP Lt. Velocities/BP Prox CCA 70.8/13.4 cm/sec. Prox CCA 90.3/16 cm/sec. Mid CCA 64.3/14.7 cm/sec. Mid CCA 57.8/12.1 cm/sec. Dist CCA 60.4/13.4 cm/sec. Dist CCA 53.8/12.1 cm/sec. Prox ICA 57.8/14.7 cm/sec. Prox ICA 53.1/13.5 cm/sec. Mid ICA 69.5/18.6 cm/sec. Mid ICA 56.4/14.6 cm/sec. Dist ICA 86.5/25.2 cm/sec. Dist ICA 61.9/19 cm/sec. Rt. ICA/CCA = 1.35. Lt. ICA/CCA = 1.07. Prox ECA 96.9/6.9 cm/sec. Prox ECA 78.6/6.9 cm/sec. Rt. Vert. 52.5/13.4 cm/sec. Lt. Vert. 71.8/13.5 cm/sec. Right Extracranial There is intimal thickening but no significant atherosclerotic plaque noted in the right common carotid artery. There is heterogeneous, irregular atherosclerotic plaque noted in the right internal carotid artery. There is intimal thickening but no significant atherosclerotic plaque noted in the right external carotid artery. Antegrade flow is noted in the right vertebral artery. Left Extracranial There is intimal thickening but no significant atherosclerotic plaque noted in the left common carotid artery. There is heterogeneous, irregular atherosclerotic plaque noted in the left internal carotid artery. There is intimal thickening but no significant atherosclerotic plaque noted in the left external carotid artery. Antegrade flow is noted in the left vertebral artery. Procedure Carotid Duplex [id number]. This is a Carotid Duplex examination using B-mode, color flow and specral Doppler. Exam performed in department. VL/Carotid Duplex Ultrasound Interpretation Summary Mild (<50%) stenosis right extracranial internal carotid. Mild (<50%) stenosis left extracranial internal carotid. Flow within the vertebral arteries is antegrade bilaterally. Ordering Physician: Tracie Henry Referring Physician: Anat Ames Performed By: Elisa Seals RVT
== END | disposition home or self-care (01) ==
PROVIDERS: PCP Nurse Practitioner; Visit Provider Internal Medicine
DX: I65.23 Occlusion and stenosis of bilateral carotid arteries (principal)
CPT/HCPCS: 93880

== ENCOUNTER → 2022-05-02 | Outpatient (CLI) | payer MEDICARE, SELFPAY ==
--- NOTE | 2022-05-02 08:48 | RDU_ITS ---
Reason For Study: HTN Right Renal Artery Left Renal Artery Right renal artery ostium Left renal artery ostium 112.3/24.6 129.9/22.4. RSV/EDV. PSV/EDV. Right renal artery proximal Left renal artery proximal PSV/EDV 107.9/22.4 PSV/EDV. 134.2/24.6 . Right renal artery mid 112.3/33.3 Left renal artery mid 153.4/34.2 PSV/EDV. PSV/EDV . Right renal artery distal Left renal artery distal 127.5/21.2 143.0/35.5 PSV/EDV. PSV/EDV. Right Renal Parenchyma Left Renal Parenchyma Upper Pole Medula 31.0/11.2 Left upper pole medulla 45.6/11.9 PSV/EDV. PSV/EDV . Right upper pole medulla EDR .36 . Left upper pole medulla EDR .26 . Right upper pole medulla R.I. .64 . Left upper pole medulla R.I. .74 . Upper Duglas Cortx 24.4/7.9 PSV/EDV. UP Cortex 32.6/9.3 PSV/EDV. Right upper pole cortex EDR .32 . Left upper pole cortex EDR .29 . Right upper pole cortex R.I. .68 . Left upper pole cortex R.I. .71 . Right lower Pole medulla 49.6/15.6 Left lower Pole medulla 36.5/10.6 PSV/EDV . PSV/EDV . Right lower pole medulla EDR .31 . Left lower pole medulla EDR .29 . Right lower pole medulla R.I. .69 . Left lower pole medulla R.I. .71 . Lower Pole Cortex 20.0/9.0 PSV/EDV. Lower Pole Cortx 24.9/9.3 PSV/EDV. Right lower pole cortex EDR .45 . Left lower pole cortex EDR .38 . Right lower pole cortex R.I. .55 . Left lower pole cortex R.I. .62 . Right Renal Hilar Left Renal Hilar Right Hilar avg 49.6/14.5 PSV/EDV. LT Hilar avg 68.9/18.4 PSV/EDV . Right hilar acceleration time 50 Left hilar acceleration time 50 m/sec. m/sec. Right Renal Dimensions Left Renal Dimensions Right kidney size 11.5 cm . Left kidney size 11.9 cm . Right cortical dimension 1.4 cm . Left cortical dimension 1.39 cm . Aorta Proximal abdominal aorta 1.76 x 1.69 cm . Proximal abdominal aorta peak systolic velocity is 103.6 cm/sec . Distal abdominal aorta 1.42 x 1.5 cm . Distal abdominal aorta peak systolic velocity is 90.4 cm/sec . Normal renal veins bilat. VL/Renal Artery Duplex Ultrasound Interpretation Summary Dimensions of the intra-abdominal aorta appear normal, without evidence of aneu rysmal dilatation. Renal artery velocities are bilaterally normal. Acceleration times are normal b ilaterally. There is no evidence of hemodynamically significant renal artery stenosis on either side . Cortical dimensions are bilaterally normal. Kidneys appear normal in size bilaterally. Ordering Physician: Tracie Henry Performed By: Bc Colindres RVT
== END | disposition home or self-care (01) ==
PROVIDERS: PCP Internal Medicine; Visit Provider Internal Medicine
DX: I10 Essential (primary) hypertension (principal)
CPT/HCPCS: 93975

== ENCOUNTER → 2022-09-19 | Outpatient (CLI) | payer MEDICARE, SELFPAY ==
--- NOTE | 2022-09-19 12:50 | BI_ITS ---
MAMMOGRAPHY - BILATERAL SCREENING REASON FOR EXAM: Female, 76 years old. Routine annual screening examination. PERTINENT HISTORY: Non-contributory. TECHNIQUE: Digital bilateral breast nicole (3D mammographic acquisition) in the CC and MLO projections. 2-D mediolateral oblique (MLO) and craniocaudad (CC) views of both breasts were obtained. CAD: Full Field Digital Mammography with Computer Added Detection was performed. COMPARISON: Comparison is made with prior examination dated 09/06/2021 and 09/02/2020. FINDINGS: Breast Composition: The breasts are heterogeneously dense, which may obscure small masses. There are no dominant masses or suspicious calcifications. Scattered bilateral breast calcifications. No focal cluster is seen. Stable benign-appearing bilateral axillary lymph nodes. No other significant abnormalities are identified. There has been no significant change since the prior study. BI/SCREENING MAMM (CAD), BILAT IMPRESSION: Stable bilateral screening mammogram. Yearly follow-up mammogram recommended. (A) ASSESSMENT CATEGORY: BIRADS Category 2: Benign. A letter regarding these results will be sent to the patient by the facility within 30 days. Approximately 10% of breast cancers are not detected by mammography. A normal mammogram should not delay biopsy of a clinically suspicious abnormality. [id number] Electronically Signed: Mike Agustin MD at 14:40 EDT ,
== END | disposition home or self-care (01) ==
LOC: OPBI 12:49
PROVIDERS: PCP Internal Medicine; Visit Provider Nurse Practitioner Family
DX: Z12.31 Encounter for screening mammogram for malignant neoplasm of breast (principal)
CPT/HCPCS: 77067

== ENCOUNTER → 2022-09-22 | Outpatient (CLI) | payer MEDICARE, SELFPAY ==
--- NOTE | 2022-09-22 15:49 | US_ITS ---
STUDY: THYROID ULTRASOUND REASON FOR EXAM: Female, 76 years old. ENLARGED THYROID TECHNIQUE: Ultrasound evaluation of the thyroid was performed with real-time and static silver-scale imaging. COMPARISON: None. FINDINGS: RIGHT LOBE: The right lobe of the thyroid gland measures 4.8 x 1.9 cm. There is a homogeneous echotexture. Multiple nodules. The largest measures 6 x 5 mm. The lesion is cystic with regular margins and herberth nodular doppler flow. LEFT LOBE: The left lobe of the thyroid gland measures 4.5 x 2 cm. There is a homogeneous echotexture. There are nodules. These measure 15 x 10 mm (Cystic), 11 x 4 mm (labelled Nodule #2 is solid), and 5 x 5 mm (cystic). ISTHMUS: The isthmus measures 3 mm. US/Thyroid IMPRESSION: There are RIGHT nodules. This nodule is cystic or nearly completely cystic. TI-RADS points: 0. TI-RADS category: TR1. This nodule is benign and no FNA or follow-up is necessary. Left nodule #2. This nodule is solid or almost completely solid, hypoechoic, [id number], smoothly marginated and contains no echogenic foci. TI-RADS points: 4. TI-RADS category: TR4. This nodule is moderately suspicious. Recommend follow-up thyroid ultrasounds at 1, 2, 3 and 5 years. Electronically Signed: Phillip Banuelos MD at 17:18 EDT ,
== END | disposition home or self-care (01) ==
PROVIDERS: PCP Internal Medicine; Referring Provider Nurse Practitioner Family; Visit Provider Nurse Practitioner Family
DX: E04.9 Nontoxic goiter, unspecified (principal)
CPT/HCPCS: 76536

== ENCOUNTER 2022-11-15 23:27 | Emergency (ER) | payer MEDICARE, SELFPAY ==
[2022-11-15 23:28] VITALS: BP 177/90; PULSE 78; RESP 16; TEMP 36.4; O2SAT 98; BMI 37.4
--- NOTE | 2022-11-16 00:06 | EX.ED.DYSGE1 ---
HPI History of Present Illness Chief Complaint: Hypertension Informant: patient Onset/Context/Timing Onset: Weeks (1) Context: Gradual Onset Timing: Continuous Quality: Weird feeling Location: Generalized Worsened by: Nothing Relieved by: Meditation, hot bath Narrative Narrative: Patient presents with elevated blood pressures that have been getting worse over the last week. Patient states she was diagnosed with COVID-19 1 week ago. Patient states that since that time her blood pressures have been elevated. Patient states her primary care physician has adjusted her blood pressure medications. Patient states her blood pressure has been 170/90 and 180/100 at home. Patient states her blood pressure gets better with meditation and taking a hot bath. Patient denies any chest pain. Patient admits to some slight nausea. Patient denies any fevers or chills. Patient denies any shortness of breath. [facility] Medical History Diabetes mellitus type II, controlled Essential (primary) hypertension Multiple thyroid nodules Obesity Premature ventricular contractions Thyroid nodule incidentally noted on imaging study Home Medications aspirin 81 mg chewable tablet 81 mg PO DAILY@0800 11/14/13 [History Last Taken 11/13/13] lisinopril 20 mg tablet 20 mg PO BID 03/05/18 [History Last Taken Unknown] cholecalciferol (vitamin D3) 50 mcg (2,000 unit) capsule 2,000 unit PO QDAY 03/06/18 [History Last Taken Unknown] metoprolol succinate 50 mg tablet,extended release 24 hr 75 mg PO BID 11/25/19 [History Last Taken Unknown] hydrochlorothiazide 25 mg tablet 25 mg PO DAILY 07/09/20 [History Last Taken Unknown] rosuvastatin 5 mg tablet 5 mg PO DAILY 10/24/22 [History Last Taken Unknown] amlodipine 5 mg tablet 5 mg PO DAILY 11/16/22 [History Last Taken Unknown] Allergy/AdvReac Type Severity Reaction Status Date / Time No Known Allergies Allergy Verified 11/15/22 23:28 Family History Sister Sick sinus syndrome H/O cardiac radiofrequency ablation Mother , age 70 CAD (coronary artery disease) Heart disease Father Pacemaker Prostate cancer Cancer Skin cancer Surgical History History of cholecystectomy Status post unilateral salpingo-oophorectomy Social History Smoking Status: Never smoker alcohol intake: never substance use type: does not use ROS ROS ED Constitutional Constitutional ED: Denies chills or fever(s) Eyes Eyes: Denies blurry vision or change in vision ENT ENT ED: Denies rhinorrhea or sore throat Cardiovascular Cardiovascular: Denies chest pain or palpitations Respiratory/Chest Respiratory/Chest: Denies cough or dyspnea Gastrointestinal Gastrointestinal: Reports nausea; Denies vomiting Genitourinary Genitourinary ED: Denies dysuria or hematuria Musculoskeletal Musculoskeletal: Denies back pain or neck pain Integumentary Denies abscess or rash Neurologic Neurologic: Denies headache(s) or weakness Allergic/Immunologic Allergic/Immunologic ED: Denies mouth swelling or urticaria EXAM Physical Exam Const Vital Signs: 11/15/22 23:28 11/16/22 00:26 11/16/22 00:40 Temperature 97.6 F L Temperature Source Temporal Pulse Rate 78 75 Respiratory Rate 16 19 H Respiratory Pattern Normal Blood Pressure 177/90 H 159/76 H Blood Pressure Mean 119 103 Pulse Ox 98 100 Oxygen Delivery Method Room Air Room Air Positive well nourished and well developed General Appearance ED: well developed HEENT Reports moist mucous membranes Neck supple and no JVD Resp normal respiratory effort and clear to auscultation bilaterally Cardio regular rate, regular rhythm and no murmurs GI normal to inspection, nondistended, normoactive bowel sounds and non-tender Palpation: soft Extremity normal to inspection General Extremety ED: Negative for edema or tenderness General Extremity: Negative for edema Neuro oriented x3, CN's II-XII intact bilaterally and no sensory deficits noted Sensorium / Orientation: alert Motor Exam: strength 5/5 throughout Psych mental status grossly normal Skin no rashes or lesions noted MDM MDM MDM Narrative Medical decision making narrative: Patient was placed on equipment monitor phototypesetting. EKG was obtained. On my interpretation, it showed a normal sinus rhythm with a rate of 64. SC interval, QRS interval, and QTc intervals were all normal. [place] was normal. There are no acute ST or T wave changes. CBC was within normal limits. Comprehensive metabolic profile was within normal limits. High-sensitivity troponin was normal at 10. Patient's repeat blood pressure was 159/76. Patient is not having any symptoms of hypertension and feels fine. Patient was instructed continue to monitor her blood pressure. Patient was instructed to follow-up with her primary care physician in 5 to 7 days for further evaluation. Patient understood and was agreeable with the plan. All questions were answered. Lab Data Attestation: I reviewed the patient's lab results. Labs: Laboratory Results - last 24 hr 11/16/22 11/16/22 00:34 00:34 WBC 9.1 RBC 4.59 Hgb 13.4 Hct 40.0 MCV 87.1 MCH 29.2 MCHC 33.5 RDW Std Deviation 39.1 RDW Coeff of Stacey 12.2 Plt Count 282 MPV 10.2 Immature Gran % (Auto) 0.500 Neut % (Auto) 56.1 Lymph % (Auto) 32.4 [place] % (Auto) 8.8 Eos % (Auto) 2.0 Baso % (Auto) 0.2 Absolute Neuts (auto) 5.1 Absolute Lymphs (auto) 2.96 Nucleated RBC % 0 Sodium 136 Potassium 3.7 Chloride 99 Carbon Dioxide 32.0 Anion Gap 5 BUN 20 H Creatinine 0.64 Estim Creat Clear Calc 41.33 Est GFR (MDRD) Af Amer 115 Est GFR (MDRD) Non-Af 95 BUN/Creatinine Ratio 31.0 H Glucose 124 H Calcium 8.9 Total Bilirubin 0.40 AST 18 ALT 27 Alkaline Phosphatase 97 Troponin I High Sens 10 Total Protein 7.4 Albumin 3.3 Globulin 4.1 Albumin/Globulin Ratio 0.8 L Discharge Plan Triage Chief Complaint: Hypertension ED Provider: Perez Good Dx/Rx/DC Orders Clinical Impression: Essential (primary) hypertension, Obesity (BMI 30-39.9) Instructions: ED Hypertension, Established Prescriptions: No Action lisinopril 20 mg tablet 20 mg PO BID cholecalciferol (vitamin D3) 2,000 unit capsule 2,000 unit PO QDAY rosuvastatin 5 mg tablet 5 mg PO DAILY aspirin 81 MG tablet,chewable 81 mg PO DAILY@0800 metoprolol succinate 50 mg tablet extended release 24 hr 75 mg PO BID hydrochlorothiazide 25 mg tablet 25 mg PO DAILY amlodipine 5 mg tablet 5 mg PO DAILY Primary Care Provider: Tracie Henry Referrals: Tracie Henry, [Primary Care Provider] - 5-7 Days Disposition Disposition: Home, Self Care
--- NOTE | 2022-11-16 00:09 | EKG12_ITS ---
Test Reason : Blood Pressure : / mmHG Vent. Rate : 064 BPM Atrial Rate : 064 BPM P-R Int : 174 ms QRS Dur : 096 ms QT Int : 420 ms P-R-T Axes : 037 019 037 degrees QTc Int : 433 ms Normal sinus rhythm with sinus arrhythmia Normal ECG Confirmed by CATRACHITA SHELTON, TASNEEM ([id number]), industrial editor FREDA CARDOZO ([id number]) on 11/16/2022 10:45:17 AM Referred By: Confirmed By:TASNEEM DOMÍNGUEZ MD
[2022-11-16 00:38] LABS: Absolute Lymphocyte Count 2.96 X10^3/uL (0.83-4.51); Absolute Neutrophil Count 5.1 X10^3/uL (2.0-7.7); Basophil# 0.02 X10^3/uL; Basophil% 0.2 % (0-1); Eosinophil# 0.18 X10^3/uL; Hemoglobin 13.4 g/dL (12.0-15.0); Lymphocyte # 2.96 X10^3/ul (0.83-4.51); Lymphocyte % 32.4 % (19-41); Mean Corp Hgb Conc 33.5 g/dL (32-36); Mean Corpuscular Hgb 29.2 pg (27.0-32.0); Mean Corpuscular Volume 87.1 fL (81-99); Mean Platelet Vol. 10.2 fl (6.2-12.0); Monocyte% 8.8 % (0-10); NRBC Flagged by Analyzer 0 % (0-5); Neutrophil # 5.12 X10^3/uL (2.7-7.7); Neutrophil % 56.1 % (47-70); Platelet Count 282 K/mm3 (150-450); RBC Distribution Width CV 12.2 % (11.6-14.6); RBC Distribution Width SD 39.1 fl (35.1-43.9); Red Blood Count 4.59 M/mm3 (4.2-5.4); White Blood Count 9.1 K/mm3 (4.4-11.0)
[2022-11-16 00:40] VITALS: BP 159/76; PULSE 75; RESP 19; O2SAT 100
[2022-11-16 00:58] LABS: ALB/GLOB Ratio 0.8 RATIO (0.9-2.4); AST(SGOT) 18 U/L (15-37); Alanine Aminotransfer ALT/SGPT 27 U/L (13-56); Albumin, Serum 3.3 g/dL (3.2-5.0); Alkaline Phosphatase 97 U/L (45-117); Anion Gap 5 (5-15); BUN 20 mg/dL (7-18); Calcium,Total 8.9 mg/dL (8.5-10.1); Chloride 99 mmol/L (98-107); Creatinine, Serum 0.64 mg/dL (0.55-1.02); EST Glomerular Filtration Rate 95 mL/min (>60); Est Glom Filt Rate - Afr Amer 115 mL/min (>60); Estimated Creatinine Clearance 41.33 ml/min; Globulin 4.1 g/dL (2.2-4.2); Glucose 124 mg/dL (74-106); Potassium 3.7 mmol/L (3.5-5.1); Protein, Total 7.4 g/dL (6.4-8.2); Sodium Level 136 mmol/L (136-145); Troponin-I HS 10 pg/mL (3.0-54.0)
[2022-11-16 01:35] VITALS: BP 154/90; PULSE 79; RESP 15; O2SAT 99
== END 2022-11-16 02:09 | disposition home or self-care (01) ==
PROVIDERS: Emergency Provider Emergency Medicine; PCP Internal Medicine; Visit Provider Emergency Medicine
DX: I10 Essential (primary) hypertension (principal); E11.9 Type 2 diabetes mellitus without complications; E66.9 Obesity, unspecified; Z68.37 Body mass index [BMI] 37.0-37.9, adult; Z79.82 Long term (current) use of aspirin; Z79.899 Other long term (current) drug therapy; Z86.16 Personal history of COVID-19
CPT/HCPCS: 80053; 84484; 85025; 93005; 99284; A4216

== ENCOUNTER → 2023-04-30 | Outpatient (CLI) | payer MEDICARE, SELFPAY ==
--- NOTE | 2023-04-30 07:57 | US_ITS ---
STUDY: ABDOMINAL ULTRASOUND - RIGHT UPPER QUADRANT REASON FOR VISIT: Female, 77 years old Liver lesion TECHNIQUE: Ultrasound evaluation of the right upper quadrant was performed with real-time and static silver-scale imaging. TECHNICAL QUALITY: Adequate. COMPARISON: None. FINDINGS: Liver: The liver measures 15.6 cm. There is normal echogenicity of the liver. Minimally dilated central intrahepatic biliary ducts. There is hepatic color flow. The direction of portal flow is hepatopetal. There is no demonstrated mass lesion. Gallbladder: The patient is status post cholecystectomy. Common Bile Duct (C.B.D.): The common bile duct measures 7. mm. Pancreas: Normal size of the head, body and tail of the pancreas. There is normal echogenicity of the pancreas. There is no demonstrated pancreatic mass or cyst. Right Kidney: Normal size of the right kidney. The right kidney measures 11.5 cm x 5.6 cm x 4.9 cm. Normal renal cortex. The right cortex measures 1.2 cm. There is no demonstrated renal mass or cyst. There is no right hydronephrosis. US/Abdomen Limited IMPRESSION: Status post cholecystectomy. Minimally dilated central intrahepatic biliary ducts. Electronically Signed: Mike Agustin MD at 14:02 EDT ,
== END | disposition home or self-care (01) ==
PROVIDERS: PCP Internal Medicine; Referring Provider Nurse Practitioner Family; Visit Provider Nurse Practitioner Family
DX: K76.9 Liver disease, unspecified (principal)
CPT/HCPCS: 76705

== ENCOUNTER → 2023-09-15 | Outpatient (CLI) | payer MEDICARE, SELFPAY ==
[2023-09-15 11:15] LABS: ALB/GLOB Ratio 0.8 RATIO (0.9-2.4); AST(SGOT) 10 U/L (15-37); Alanine Aminotransfer ALT/SGPT 21 U/L (13-56); Albumin, Serum 3.3 g/dL (3.2-5.0); Alkaline Phosphatase 81 U/L (45-117); Anion Gap 6 (5-15); BUN 21 mg/dL (7-18); BUN/Creat Ratio 33.1 RATIO (10-20); Calcium,Total 8.9 mg/dL (8.5-10.1); Chloride 103 mmol/L (98-107); Cholesterol 168 mg/dL (200); Creatinine, Serum 0.64 mg/dL (0.55-1.02); EST Glomerular Filtration Rate 97 mL/min (>60); Est Glom Filt Rate - Afr Amer 117 mL/min (>60); Globulin 4.1 g/dL (2.2-4.2); Glucose 97 mg/dL (74-106); High Density Lipoprotein 68 mg/dL; Potassium 3.6 mmol/L (3.5-5.1); Protein, Total 7.4 g/dL (6.4-8.2); Sodium Level 140 mmol/L (136-145); Triglycerides 76 mg/dL; Very Low Density Lipoprotein 15 mg/dL (5-40)
== END | disposition home or self-care (01) ==
PROVIDERS: PCP Internal Medicine; Visit Provider Nurse Practitioner Family
DX: I25.10 Atherosclerotic heart disease of native coronary artery without angina pectoris (principal); I10 Essential (primary) hypertension
CPT/HCPCS: 36415; 80053; 80061

== ENCOUNTER → 2023-09-21 | Outpatient (CLI) | payer MEDICARE, SELFPAY ==
--- NOTE | 2023-09-21 14:52 | BI_ITS ---
MAMMOGRAPHY - BILATERAL SCREENING REASON FOR EXAM: Female, 77 years old. Routine annual screening examination. PERTINENT HISTORY: Non-contributory. TECHNIQUE: Digital bilateral breast monserrat (3D mammographic acquisition) in the CC and MLO projections. 2-D mediolateral oblique (MLO) and craniocaudad (CC) views of both breasts were obtained. CAD: Full Field Digital Mammography with Computer Added Detection was performed. COMPARISON: Comparison is made with prior study dated September 19, 2022 and September 06, 2021. FINDINGS: Breast Composition: The breasts are heterogeneously dense, which may obscure small masses. There are no dominant masses or suspicious calcifications. Stable small benign-appearing bilateral axillary. Stable scattered bilateral calcifications. No other significant abnormalities are identified. There has been no significant change since the prior study. BI/SCRN MAMM (CAD)W/MONSERRAT BILAT IMPRESSION: Stable bilateral screening mammogram. Yearly follow-up mammogram recommended. (A) ASSESSMENT CATEGORY: BIRADS Category 2: Benign. A letter regarding these results will be sent to the patient by the facility within 30 days. Approximately 10% of breast cancers are not detected by mammography. A normal mammogram should not delay biopsy of a clinically suspicious abnormality. [id number] Electronically Signed: Mike Agustin MD at 15:36 EDT ,
== END | disposition home or self-care (01) ==
LOC: OPBI 14:51
PROVIDERS: PCP Internal Medicine; Referring Provider Nurse Practitioner Family; Visit Provider Nurse Practitioner Family
DX: Z12.31 Encounter for screening mammogram for malignant neoplasm of breast (principal)
CPT/HCPCS: 77063; 77067

== ENCOUNTER → 2023-10-09 | Outpatient (CLI) | payer MEDICARE, SELFPAY ==
--- NOTE | 2023-10-09 13:53 | US_ITS ---
STUDY: THYROID ULTRASOUND REASON FOR EXAM: Female, 77 years old. Thyroid nodules TECHNIQUE: Ultrasound evaluation of the thyroid was performed with real-time and static silver-scale imaging. COMPARISON: None. FINDINGS: RIGHT LOBE: The right lobe of the thyroid gland measures 4.2 x 1.6 x 1.7 cm. There is a heterogeneous echotexture. Small hypoechoic/anechoic structures within the left thyroid lobe, structure within the lower pole of the right thyroid lobe suggestive of cystic and solid nodular pattern measuring 0.5 x 0.6 x 0.4 cm. The margins are regular with peripheral nodular flow. Stable cystic structure within the mid upper pole. There is a large cyst within the LEFT LOBE: The left lobe of the thyroid gland measures 3.9 x 1.6 x 1.7 cm. There is a heterogeneous echotexture. In the middle pole of the left thyroid lobe there is a posterior anechoic structure measuring 1.5 x 1.2 x 0.9 cm consistent with a cyst. Within the anterior aspect of the mid lower pole there is a hypoechoic nodule measuring 5.7 x 3.1 x 5.0 mm, stable with irregular margins and peripheral flow. A third cystic structure seen within the middle pole measuring 5.4 x 3.4 x 6.0 mm, stable. The margins are regular. ISTHMUS: The isthmus measures 0.31 cm. The regional lymph nodes are normal. US/Thyroid IMPRESSION: Bilateral thyroid lobe nodules many with cystic component and morphology favoring benign process, stable in the interval. Note to be made that benign versus malignant processes is difficult to assess without microscopic evaluation or documentation of stability. If indicated, follow-up ultrasound recommended in 6-12 months to document stability. Electronically Signed: Jeaneth Poon MD at 0:49 EST ,
== END | disposition home or self-care (01) ==
PROVIDERS: PCP Internal Medicine; Referring Provider Surgery; Visit Provider Surgery
DX: E04.2 Nontoxic multinodular goiter (principal)
CPT/HCPCS: 76536

== ENCOUNTER → 2024-04-15 | Outpatient (CLI) | payer MEDICARE, SELFPAY ==
--- NOTE | 2024-04-15 14:03 | BD_ITS ---
STUDY: DUAL ENERGY X-RAY ABSORPTIOMETRY / DXA REASON FOR EXAM: Female, 78 years old. [id number] TECHNIQUE: Bone Mineral Density (BMD) measurements of lumbar spine and bilateral hips were obtained. COMPARISON: Comparison is made with prior study February 28, 2022. FINDINGS: Lumbar Spine (L1-L4): g/cm2 (0.894) / T-score (-1.4) / Z-score (1.1) Findings are suggestive of osteopenia with a low fracture risk. Left Femur Total: g/cm2 (0.884) / T-score (-0.5) / Z-score (1.4) Left Femoral Neck: g/cm2 (0.631) / T-score (-2.0) / Z-score (0.2) Right Femur Total: g/cm2 (0.925) / T-score (-0.1) / Z-score (1.8) Right Femoral Neck: g/cm2 (0.717) / T-score (-1.2) / Z-score (1.0) The T-Scores on the most recent prior examination were: Lumbar Spine (L1-L4): There has been worsening of bone density since the previous examination. Left Femur Total: which represents a worsening of 2.4%. Right Femur Total: which represents a worsening of 4.1%. BD/Dexa Bone Density Study IMPRESSION: The patient is considered osteopenic as outlined below according to World [employer] Organization (WHO) criteria with a moderate fracture risk. There has been worsening of bone density since the previous examination. Reference Information: The T-score is the number of standard deviations above or below the standard which is normal for young adults at their peak bone mineral density. The World Health Organization (WHO) interprets the T-scores as follows: Above -1 Normal bone density Between -1 and -2.5 Osteopenia Equal to / or below -2.5 Osteoporosis As a practical clinical guideline, osteopenia may be graded as follows: Mild -1 through -1.5 Moderate -1.6 through -2.0 Severe -2.1 through -2.4 The Z-score is the number of standard deviations above or below age-matched controls. A Z-score of less than -1.5 would be considered abnormal. References: 1. NIH Osteoporosis and Related Bone Diseases www osteo.org 2. International Society for Clinical Densitometry www iscd.org 3. National Osteoporosis Foundation www nof.org Electronically Signed: Mike Agustin MD at 9:22 EDT ,
== END | disposition home or self-care (01) ==
PROVIDERS: PCP Nurse Practitioner Family; Referring Provider Nurse Practitioner Family; Visit Provider Nurse Practitioner Family
DX: Z13.820 Encounter for screening for osteoporosis (principal); Z78.0 Asymptomatic menopausal state
CPT/HCPCS: 77080

== ENCOUNTER → 2024-08-19 | Outpatient (CLI) | payer MEDICARE, SELFPAY ==
--- NOTE | 2024-08-19 12:43 | ECHOD_ITS ---
Reason For Study: Palpitations Procedure This was a 2D Doppler, Color Flow transthoracic echocardiogram. Exam performed in department. Left Ventricle Normal LV size. The left ventricular ejection fraction is 65 %. No regional wall motion abnormalities noted. Right Ventricle Normal RV size. Normal systolic function. Mitral Valve Mild focal mitral valve calcification of the anterior leaflet. Mild (1+) eccentric mitral valve insufficiency. Tricuspid Valve Normal tricuspid valve. Mild (1+) tricuspid valve insufficiency. Pulmonary artery systolic pressure is 36 mmHg. Aortic Valve Trisinus/trileaflet aortic valve. Mild focal aortic valve calcification. Pulmonic Valve Normal pulmonic valve. Great Vessels Normal aortic root. The pulmonary artery is normal size. Normal inferior vena cava. Pericardium/Pleural No pericardial effusion. MMode/2D Measurements & Calculations LVIDd: 5.4 cm IVSd: 0.97 cm Ao root diam: 2.9 cm LVIDs: 3.2 cm LVPWd: 1.1 cm RVDd: 3.3 cm FS: 41.3 % LAV(MOD-bp): 62.7 ml LVAd ap4: 25.7 cm2 LVAd ap2: 26.5 cm2 LAV(MOD-bp) Indexed: 30.3 ml/m2 LVLd ap4: 7.7 cm LVLd ap2: 7.4 cm LAV(MOD-sp2): 74.3 ml EDV(MOD-sp4): 71.7 ml EDV(MOD-sp2): 79.9 ml LAV(MOD-sp4): 53.0 ml EDV(sp4-el): 72.3 ml EDV(sp2-el): 81.2 ml LVAs ap4: 13.5 cm2 LVAs ap2: 14.6 cm2 LVLs ap4: 6.4 cm LVLs ap2: 6.3 cm ESV(MOD-sp4): 25.9 ml ESV(MOD-sp2): 29.3 ml ESV(sp4-el): 24.0 ml ESV(sp2-el): 28.8 ml EF(MOD-sp4): 63.9 % EF(MOD-sp2): 63.3 % EF(sp4-el): 66.8 % SV(MOD-sp4): 45.8 ml SV(MOD-sp2): 50.6 ml SV(sp4-el): 48.3 ml LA dimension(2D): 4.0 cm LA A4 area: 19.6 cm2 RA A4 area: 15.7 cm2 TAPSE: 2.2 cm Time Measurements MV dec time: 0.21 sec Doppler Measurements & Calculations MV E max adam: 79.1 cm/sec Lat Peak E' Adam: 8.6 cm/sec Med Peak E' Adam: 5.4 cm/sec MV A max adam: 77.7 cm/sec E/E' lat: 9.2 E/E' med: 14.7 MV E/A: 1.0 MV dec slope: 369.7 cm/sec2 Ao V2 max: 124.7 cm/sec LV V1 max: 98.8 cm/sec Ao max P.2 mmHg LV V1 max P.9 mmHg Ao V2 mean: 82.2 cm/sec LV V1 mean P.0 mmHg Ao mean P.2 mmHg LV V1 mean: 67.0 cm/sec Ao V2 VTI: 32.6 cm LV V1 VTI: 26.5 cm AV (velocity ratio): 0.81 PA V2 max: 80.6 cm/sec TR max adam: 280.2 cm/sec TR max P.4 mmHg ECHO/Echo Complete Interpretation Summary Normal LV size. The left ventricular ejection fraction is 65 %. Pulmonary artery systolic pressure is 36 mmHg. Mild focal aortic valve calcification. Mild (1+) tricuspid valve insufficiency. Ordering Physician: Santiago Harrell/Rito Jorgensen Referring Physician: Santiago Harrell Performed By: Tereza Mayfield RDCS
== END | disposition home or self-care (01) ==
PROVIDERS: PCP Nurse Practitioner Family; Referring Provider Nurse Practitioner Family; Visit Provider Nurse Practitioner Family
DX: R00.2 Palpitations (principal); I10 Essential (primary) hypertension; I49.3 Ventricular premature depolarization; E78.5 Hyperlipidemia, unspecified
CPT/HCPCS: 93306

== ENCOUNTER → 2024-09-16 | Outpatient (CLI) | payer MEDICARE, SELFPAY ==
[2024-09-16 09:07] LABS: ALB/GLOB Ratio 0.8 RATIO (0.9-2.4); AST(SGOT) 15 U/L (15-37); Alanine Aminotransfer ALT/SGPT 21 U/L (13-56); Albumin, Serum 3.3 g/dL (3.2-5.0); Alkaline Phosphatase 85 U/L (45-117); Anion Gap 5 (5-15); BUN 27 mg/dL (7-18); BUN/Creat Ratio 36.4 RATIO (10-20); Calcium,Total 9.3 mg/dL (8.5-10.1); Chloride 105 mmol/L (98-107); Cholesterol 154 mg/dL (200); Creatinine, Serum 0.74 mg/dL (0.55-1.02); EST Glomerular Filtration Rate 81 mL/min (>60); Est Glom Filt Rate - Afr Amer 98 mL/min (>60); Globulin 4.2 g/dL (2.2-4.2); Glucose 102 mg/dL (74-106); High Density Lipoprotein 74 mg/dL; Potassium 4.1 mmol/L (3.5-5.1); Protein, Total 7.5 g/dL (6.4-8.2); Sodium Level 138 mmol/L (136-145); Triglycerides 74 mg/dL; Very Low Density Lipoprotein 15 mg/dL (5-40)
[2024-09-19 12:09] LABS: Vitamin D 1,25-Dihydroxy 46.8 pg/mL (24.8-81.5)
== END | disposition home or self-care (01) ==
LOC: LAB 08:06
PROVIDERS: PCP Nurse Practitioner Family; Referring Provider Nurse Practitioner Family; Visit Provider Nurse Practitioner Family
DX: R73.03 Prediabetes (principal); I25.10 Atherosclerotic heart disease of native coronary artery without angina pectoris; E55.9 Vitamin D deficiency, unspecified
CPT/HCPCS: 36415; 80053; 80061; 82652

== ENCOUNTER → 2024-09-22 | Outpatient (CLI) | payer MEDICARE, SELFPAY ==
--- NOTE | 2024-09-22 13:13 | BI_ITS ---
MAMMOGRAPHY - BILATERAL SCREENING REASON FOR EXAM: Female, 78 years old. Routine annual screening examination. PERTINENT HISTORY: Non-contributory. History of prior left breast aspiration. TECHNIQUE: Digital bilateral breast monserrat (3D mammographic acquisition) in the CC and MLO projections. 2-D mediolateral oblique (MLO) and craniocaudad (CC) views of both breasts were obtained. CAD: Full Field Digital Mammography with Computer Added Detection was performed. COMPARISON: Comparison is made with prior study dated September 21, 2023 and September 19, 2022. FINDINGS: Breast Composition: The breasts are heterogeneously dense, which may obscure small masses. There are no dominant masses or suspicious calcifications. Stable scattered bilateral microcalcifications. No focal cluster is seen. No other significant abnormalities are identified. There has been no significant change since the prior study. BI/SCRN MAMM (CAD)W/MONSERRAT BILAT IMPRESSION: Stable bilateral screening mammogram. Yearly follow-up mammogram recommended. (A) ASSESSMENT CATEGORY: BIRADS Category 2: Benign. A letter regarding these results will be sent to the patient by the facility within 30 days. Approximately 10% of breast cancers are not detected by mammography. A normal mammogram should not delay biopsy of a clinically suspicious abnormality. [id number] Electronically Signed: Mike Agustin MD at 14:35 EDT ,
== END | disposition home or self-care (01) ==
LOC: OPBI 13:11
PROVIDERS: PCP Nurse Practitioner Family; Referring Provider Nurse Practitioner Family; Visit Provider Nurse Practitioner Family
DX: Z12.31 Encounter for screening mammogram for malignant neoplasm of breast (principal)
CPT/HCPCS: 77063; 77067

== ENCOUNTER → 2024-10-11 | Outpatient (CLI) | payer MEDICARE, SELFPAY ==
--- NOTE | 2024-10-11 10:18 | US_ITS ---
EXAM: US SOFT TISSUES HEAD AND NECK, THYROID CLINICAL INDICATION: ENLARGED THYROID TECHNIQUE: Greyscale and color doppler imaging was performed of the thyroid gland. COMPARISON: No relevant prior studies available. FINDINGS: LEFT THYROID LOBE: Left thyroid lobe measures 4.7 x 1.5 x 2.1 cm. Largest nodule on the left side measures up to 1.6 cm the superior pole and demonstrating an anechoic appearance indicating a benign cystic process. The second largest is also cystic and measures 7 mm at the lower pole. There is a solid 6 mm nodule at the interpolar level. This nodule is ovoid, circumscribed, hypoechoic and without calcification, compatible with TIRADS level TR 4. RIGHT THYROID LOBE: Right thyroid lobe measures 4.3 x 1.4 x 1.5 cm. The right-sided nodule measures up to 8 mm demonstrating an anechoic appearance with calcifications at the inferior pole. ISTHMUS: Thyroid isthmus measures 3 mm. US/Thyroid IMPRESSION: Benign thyroid nodules as above. Note only solid nodule measured is a TR4 nodule located within the left lobe, measuring up to 6 mm. No additional follow-up needed of this small nodule. Electronically Signed: Francis Adamson MD at 4:29 EST ,
== END | disposition home or self-care (01) ==
LOC: US 10:16
PROVIDERS: PCP Nurse Practitioner Family; Referring Provider Nurse Practitioner Family; Visit Provider Nurse Practitioner Family
DX: E04.9 Nontoxic goiter, unspecified (principal)
CPT/HCPCS: 76536

== ENCOUNTER 2024-10-25 11:50 | Emergency (ER) | payer MEDICARE, SELFPAY ==
[2024-10-25 11:51] VITALS: BP 190/88; PULSE 64; RESP 17; TEMP 36.1; O2SAT 100; BMI 39.6
--- NOTE | 2024-10-25 12:25 | EKG12_ITS ---
Test Reason : HTN Blood Pressure : */* mmHG Vent. Rate : 54 BPM Atrial Rate : 54 BPM P-R Int : 196 ms QRS Dur : 102 ms QT Int : 432 ms P-R-T Axes : 76 39 57 degrees QTcB Int : 409 ms Sinus bradycardia Otherwise normal ECG Confirmed by Jhonny Barton [id number]), senior editor FREDA CARDOZO ([id number]) on 10/27/2024 11:35:21 AM Referred By: Vicki Domínguez Confirmed By: Jhonny Barton
--- NOTE | 2024-10-25 12:26 | EX.ED.DYSGE1 ---
HPI History of Present Illness Chief Complaint: Hypertension Detail of Chief Complaint: Hypertension Informant: patient Narrative Narrative: Patient presents to the emergency department complaint of elevated blood pressure today. Patient states that normally she takes her blood pressure regularly and she runs about 130 systolic over 80. Today she was reading and started feeling like maybe her heart was racing so she checked her blood pressure and it was 180/90. Patient became concerned because she read that if your blood pressures above 180 the [place] [employer] recommends that you see your doctor. Patient felt like she needed to come get evaluated although she is otherwise asymptomatic. 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 She denies chest pain. She denies headache. She denies increased stress. She is not in any pain. [facility] Medical History Multiple thyroid nodules Thyroid nodule incidentally noted on imaging study Obesity Essential (primary) hypertension Diabetes mellitus type II, controlled Premature ventricular contractions Home Medications ?Medication ?Instructions ?Recorded ?Last Taken ?Type aspirin 81 mg chewable tablet 81 mg PO DAILY@0800 11/14/13 11/13/13 History hydrochlorothiazide 25 mg tablet 25 mg PO DAILY 07/09/20 Unknown History cholecalciferol (vitamin D3) 25 25 mcg PO BID 07/30/24 Unknown History mcg (1,000 unit) tablet coenzyme Q10 100 mg tablet 100 mg PO QDAY 07/30/24 Unknown History lisinopril 20 mg tablet 20 mg PO QDAY 07/30/24 Unknown History metoprolol tartrate 50 mg tablet 50 mg PO BID 08/25/24 Unknown History Allergy/AdvReac Type Severity Reaction Status Date / Time No Known Allergies Allergy Verified 07/30/24 10:08 Family History Sister Sick sinus syndrome H/O cardiac radiofrequency ablation Mother , age 70 CAD (coronary artery disease) Heart disease Father Pacemaker Prostate cancer Cancer Skin cancer Surgical History Status post unilateral salpingo-oophorectomy History of cholecystectomy Social History Smoking Status: Never smoker alcohol intake: current alcohol intake frequency: holidays/special occasions only substance use type: does not use caffeine: Yes Type: coffee Number of servings: 2 ROS ROS ED Review of Systems ROS Unobtainable: other Constitutional Constitutional ED: Reports lethargy; Denies chills, fever(s), sweats or weight loss Eyes Eyes: Denies blurry vision, change in vision or diplopia ENT ENT ED: Denies rhinorrhea or sore throat Cardiovascular Cardiovascular: Reports racing heartbeat; Denies chest pain or orthopnea Respiratory/Chest Respiratory/Chest: Denies cough, dyspnea, dyspnea on exertion, orthopnea or sputum Gastrointestinal Gastrointestinal: Denies abdominal pain, diarrhea, nausea or vomiting Genitourinary Genitourinary ED: Denies dysuria, hematuria or urinary frequency Musculoskeletal Musculoskeletal: Denies arthralgias, back pain, myalgias or neck pain Integumentary Denies abscess, Abrasions or rash Neurologic Neurologic: Denies headache(s) or weakness Psychiatric Psychiatric: Denies anxiety, depression or suicidal thoughts Endocrine Endocrinology: Denies polydipsia, polyphagia or polyuria Hematologic/Lymphatic Hematologic/Lymphatic: Denies easy bleeding, easy bruising or lymphadenopathy Allergic/Immunologic Allergic/Immunologic ED: Denies mouth swelling, tongue swelling or urticaria EXAM Physical Exam Const Vital Signs: 10/25/24 11:51 10/25/24 12:54 10/25/24 13:50 Temperature 97.0 F L Temperature Source Temporal Pulse Rate 64 66 Respiratory Rate 17 17 Respiratory Effort Normal Respiratory Pattern Normal Blood Pressure 190/88 H 159/78 H Blood Pressure Mean 122 105 Pulse Ox 100 Oxygen Delivery Method Room Air Positive well nourished and well developed General Appearance ED: well developed and NAD HEENT Reports TM's clear and moist mucous membranes normocephalic and atraumatic; Negative for trauma or tenderness Tympanic Membrane ED: Yes TM's clear Eyes PERRL and EOMs intact bilaterally General Eye ED: Negative for pale conjunctiva or scleral icterus Neck no lymphadenopathy, supple and no JVD General: Negative for tenderness Chest Wall inspection of chest normal and palpation of chest normal Chest: Negative for tenderness Resp normal respiratory effort and clear to auscultation bilaterally Effort and Inspection: Negative for respiratory distress or pain with movement Auscultation: Negative for rhonchi, wheezes or diminished lung sounds Cardio regular rate, regular rhythm, S1 normal heart sound, S2 normal heart sound and no murmurs Peripheral Pulses: pulses 2+ throughout GI normal to inspection, nondistended, normoactive bowel sounds, soft to palpation, non-tender, non-distended and no masses Back/Spine no CVA tenderness and no thoracic nor lumbar tenderness Extremity normal to inspection General Extremety ED: Negative for edema General Extremity: Negative for edema Neuro oriented x3, CN's II-XII intact bilaterally, no sensory deficits noted and gait normal Sensorium / Orientation: awake, alert, oriented to person, oriented to place and oriented to time Motor Exam: strength 5/5 throughout and strength abnormal Psych mental status grossly normal Skin no rashes or lesions noted and no wounds MDM MDM MDM Narrative Medical decision making narrative: Patient presents with hypertension and no other symptoms. Initially felt like her heart was racing and then she checked her blood pressure and then Checking it and it was higher and higher. She does not have chest pain or shortness of breath or any other symptomatology. Normally her blood pressure is well-controlled and reads in the 130s over 80s range. Patient did take her blood pressure medicine this morning. EKG obtained on arrival showed a sinus rhythm with ventricular rate of 54 bpm with no acute ST segment changes. CBC with differential white count 11.3 with hemoglobin 14 and platelet count of 250. Chemistries were unremarkable. Urinalysis unremarkable. Troponin was 10. Without any treatment in the emergency department patient's most current blood pressure 159/78. She clinically feels well and is asymptomatic. I feel she can be safely discharged to home. She is advised to follow-up with her primary care physician within next 5 to 7 days. She is to return if severe headache, chest pain, shortness of breath, or condition should worsen anyway. Lab Data Attestation: I reviewed the patient's lab results. Labs: Laboratory Results - last 24 hr 10/25/24 12:44 WBC 11.3 H RBC 4.76 Hgb 14.0 Hct 41.4 MCV 87.0 MCH 29.4 MCHC 33.8 RDW Std Deviation 39.8 RDW Coeff of Stacey 12.4 Plt Count 250 MPV 11.1 Immature Gran % (Auto) 0.500 Neut % (Auto) 63.4 Lymph % (Auto) 24.8 Lake % (Auto) 8.9 Eos % (Auto) 2.0 Baso % (Auto) 0.4 Absolute Neuts (auto) 7.2 Absolute Lymphs (auto) 2.81 Nucleated RBC % 0 Sodium 138 Potassium 3.4 L Chloride 102 Carbon Dioxide 30.0 Anion Gap 6 BUN 18 Creatinine 0.64 Estim Creat Clear Calc 68.37 Est GFR (MDRD) Af Amer 114 Est GFR (MDRD) Non-Af 95 BUN/Creatinine Ratio 27.9 H Glucose 101 Calcium 8.8 Troponin I High Sens 10 Urine Color Yellow Urine Clarity Clear Urine pH 6.0 Ur Specific [place] 1.015 Urine Protein 15 H Urine Glucose (UA) Normal Urine Ketones Negative Urine Occult Blood 10 H Urine Nitrite Negative Urine Bilirubin Negative Urine Urobilinogen Normal Ur Leukocyte Esterase Negative Urine RBC 0 SEEN Urine WBC 0 SEEN Ur Squamous Epith Cells 0 SEEN Urine Bacteria 0 SEEN Urine Mucus 0 SEEN EKG Initial EKG: Attestation: I personally reviewed and interpreted this EKG as follows: Comments: Sinus bradycardia with ventricular rate of 54 bpm with no acute ST segment changes Discharge Plan Triage Chief Complaint: Hypertension ED Provider: Vicki Domínguez Dx/Rx/DC Orders Clinical Impression: Hypertension Instructions: ED Hypertension, Established Prescriptions: No Action lisinopril 20 mg tablet 20 mg PO QDAY cholecalciferol (vitamin D3) 25 mcg (1,000 unit) tablet 25 mcg PO BID coenzyme Q10 100 mg tablet 100 mg PO QDAY aspirin 81 MG tablet,chewable 81 mg PO DAILY@0800 hydrochlorothiazide 25 mg tablet 25 mg PO DAILY metoprolol tartrate 50 mg tablet 50 mg PO BID Primary Care Provider: Betty Gutierrez Referrals: Betty Gutierrez, RANDA-C [Primary Care Provider] - 5-7 Days Print Language: Icelandic Disposition Disposition: Home, Self Care
[2024-10-25 12:57] LABS: Bacteria 0 SEEN /hpf (None Seen); Mucous, Urine 0 SEEN /hpf (<or=2+); Red Blood Cells-Urine 0 SEEN /hpf (0-5); Squamous Epithelial Cells - UA 0 SEEN /hpf (5-10); White Blood Cells 0 SEEN /hpf (0-5)
[2024-10-25 13:07] LABS: Absolute Lymphocyte Count 2.81 X10^3/uL (0.83-4.51); Absolute Neutrophil Count 7.2 X10^3/uL (2.0-7.7); Basophil# 0.04 X10^3/uL; Basophil% 0.4 % (0-1); Color, Urine Yellow (Yellow); Eosinophil# 0.23 X10^3/uL; Glucose, Dipstick Normal (Normal); Hematocrit 41.4 % (37-47); Ketone-Dipstick Negative (Negative); Leukocyte Esterase-Dipstick Negative /ul (Negative); Lymphocyte # 2.81 X10^3/ul (0.83-4.51); Lymphocyte % 24.8 % (19-41); Mean Corp Hgb Conc 33.8 g/dL (32-36); Mean Corpuscular Hgb 29.4 pg (27.0-32.0); Mean Platelet Vol. 11.1 fl (6.2-12.0); Monocyte# 1.01 X10^3/uL; Monocyte% 8.9 % (0-10); NRBC Flagged by Analyzer 0 % (0-5); Neutrophil # 7.16 X10^3/uL (2.7-7.7); Neutrophil % 63.4 % (47-70); Nitrite-Dipstick Negative (Negative); Occult Blood-Urine 10 /ul (Negative); Platelet Count 250 K/mm3 (150-450); Protein-Dipstick 15 mg/dl (Negative); RBC Distribution Width CV 12.4 % (11.6-14.6); RBC Distribution Width SD 39.8 fl (35.1-43.9); Red Blood Count 4.76 M/mm3 (4.2-5.4); Specific Gravity, Urine 1.015 (1.002-1.030); Urine Bilirubin Dipstick Negative (Negative); Urine Clarity Clear (Clear); Urine Urobilinogen Normal (Normal); White Blood Count 11.3 K/mm3 (4.4-11.0)
[2024-10-25 13:20] LABS: Anion Gap 6 (5-15); BUN 18 mg/dL (7-18); BUN/Creat Ratio 27.9 RATIO (10-20); Calcium,Total 8.8 mg/dL (8.5-10.1); Chloride 102 mmol/L (98-107); Creatinine, Serum 0.64 mg/dL (0.55-1.02); EST Glomerular Filtration Rate 95 mL/min (>60); Est Glom Filt Rate - Afr Amer 114 mL/min (>60); Estimated Creatinine Clearance 68.37 ml/min; Glucose 101 mg/dL (74-106); Potassium 3.4 mmol/L (3.5-5.1); Sodium Level 138 mmol/L (136-145); Troponin-I HS (w/2H Reflex) 10 pg/mL (3.0-54.0)
[2024-10-25 13:50] VITALS: BP 159/78; PULSE 66; RESP 17
[2024-10-25 14:00] VITALS: BP 160/87; PULSE 54; RESP 16; TEMP 36.5; O2SAT 98
[2024-10-25 14:55] LABS: Reflex Troponin-HS? (from REC) Y
== END 2024-10-25 14:05 | disposition home or self-care (01) ==
PROVIDERS: Emergency Provider Emergency Medicine; PCP Nurse Practitioner Family; Referring Provider Emergency Medicine; Visit Provider Emergency Medicine
DX: I10 Essential (primary) hypertension (principal); E11.9 Type 2 diabetes mellitus without complications
CPT/HCPCS: 80048; 81001; 84484; 85025; 93005; 99284; A4216

== ENCOUNTER 2024-10-28 08:31 | Emergency (ER) | payer MEDICARE, SELFPAY ==
[2024-10-28 08:32] VITALS: BP 194/88; PULSE 80; RESP 16; TEMP 36.5; O2SAT 98; BMI 38.8
--- NOTE | 2024-10-28 09:00 | EX.ED.DYSGE1 ---
HPI History of Present Illness Chief Complaint: Palpitations Informant: patient Narrative Narrative: Patient is a 79-year-old female with history of hypertension (on metoprolol, HCTZ and lisinopril), PVCs and hyperlipidemia presenting from home for concern of elevated blood pressure, tachycardia and palpitations. Patient states around 630 or 7 AM she woke up and folic her heart was racing. She states she is normally on Toprol and her heart rate is normally in the 60s. Her heart rate was around 110 until 8 AM which is when she decided come to the emergency room. She states that she has similar episode a couple days ago where she was seen in the ER. At that time she was hypertensive and she came in for further evaluation. In the ER her blood pressure normalized, her workup was largely negative and she was discharged home with outpatient follow-up. It has been the weekend so she has not had time to arrange follow-up with her primary care doctor yet. She notes that she had a runny nose 5 days ago that lasted for about 24 hours but denies any other cold or flulike symptoms. She denies any cough, chest pain, shortness of breath, leg swelling or difficulty breathing. She notes that she has some increased fatigue with activity but thought that was likely related to her age. She denies dyspnea on exertion. She has some mild nausea this morning but attributes that to not eating breakfast. She denies any vomiting, change in her bowel movements, black or blood in her stool. She denies any recent weight changes or medication changes. She denies any history of DVT or PE. She is not on any blood thinners. Denies any recent travel or immobilization. No other complaints or concerns reported at this time. [facility] Medical History Multiple thyroid nodules Thyroid nodule incidentally noted on imaging study Obesity Essential (primary) hypertension Diabetes mellitus type II, controlled Premature ventricular contractions Home Medications ?Medication ?Instructions ?Recorded ?Last Taken ?Type aspirin 81 mg chewable tablet 81 mg PO DAILY@0800 11/14/13 11/13/13 History hydrochlorothiazide 25 mg tablet 25 mg PO DAILY 07/09/20 Unknown History cholecalciferol (vitamin D3) 25 25 mcg PO BID 07/30/24 Unknown History mcg (1,000 unit) tablet coenzyme Q10 100 mg tablet 100 mg PO QDAY 07/30/24 Unknown History lisinopril 20 mg tablet 20 mg PO QDAY 07/30/24 Unknown History metoprolol tartrate 50 mg tablet 50 mg PO BID 08/25/24 Unknown History cephalexin 500 mg capsule 500 mg PO Q12 #10 CAPSULES 10/28/24 Unknown Rx Allergy/AdvReac Type Severity Reaction Status Date / Time No Known Allergies Allergy Verified 10/28/24 08:34 Family History Sister Sick sinus syndrome H/O cardiac radiofrequency ablation Mother , age 70 CAD (coronary artery disease) Heart disease Father Pacemaker Prostate cancer Cancer Skin cancer Surgical History Status post unilateral salpingo-oophorectomy History of cholecystectomy Social History Smoking Status: Never smoker alcohol intake: current alcohol intake frequency: holidays/special occasions only substance use type: does not use caffeine: Yes Type: coffee Number of servings: 2 ROS ROS ED Constitutional Constitutional ED: Denies chills, fever(s) or sweats ENT ENT ED: Reports rhinorrhea and other Details: Denies any congestion or current rhinorrhea ; Denies ear pain or sore throat Cardiovascular Cardiovascular: Reports palpitations and racing heartbeat; Denies chest pain Respiratory/Chest Respiratory/Chest: Denies cough, dyspnea or dyspnea on exertion Gastrointestinal Gastrointestinal: Denies abdominal pain, diarrhea, melena, nausea or vomiting Genitourinary Genitourinary ED: Reports urinary frequency and other Details: Has chronic urinary frequency which she attributes to her diuretic Musculoskeletal Musculoskeletal: Denies arthralgias or myalgias Integumentary Denies rash Neurologic Neurologic: Denies weakness EXAM Physical Exam Const Vital Signs: 10/28/24 08:32 10/28/24 08:46 10/28/24 10:32 Temperature 97.7 F L Temperature Source Oral Pulse Rate 80 55 L Respiratory Rate 16 18 Respiratory Effort Normal Blood Pressure 194/88 H 168/77 H Blood Pressure Mean 123 107 Pulse Ox 98 94 Oxygen Delivery Method Room Air Positive well nourished and well developed General Appearance ED: well developed and NAD HEENT Reports moist mucous membranes HEENT Narrative: Normal oropharynx Eyes PERRL and EOMs intact bilaterally General Eye ED: Negative for pale conjunctiva Neck supple and no JVD Chest Wall inspection of chest normal and palpation of chest normal Resp normal respiratory effort and clear to auscultation bilaterally Cardio regular rate, regular rhythm and no murmurs GI normal to inspection, nondistended, normoactive bowel sounds and non-tender Palpation: soft Extremity normal to inspection General Extremety ED: Negative for edema or tenderness General Extremity: Negative for edema Neuro oriented x3 Sensorium / Orientation: alert Motor Exam: Negative for general weakness Psych mental status grossly normal Skin no rashes or lesions noted and no wounds MDM MDM MDM Narrative Medical decision making narrative: Patient evaluated for palpitations. Is also concerned when her blood pressure is elevated this morning. Initial blood pressure 194/88 however on repeat after being in the room for short amount of time blood pressure now 161/74. She did take her morning medications. Patient was evaluated 3 days ago in the ER for similar complaint. Workup at that time was largely negative however will add on a D-dimer, TSH as patient has history of thyroid nodules and a repeat EKG, CBC, BMP, urinalysis and troponin. Differential includes arrhythmia, proximal atrial fibrillation, thyroid dysfunction, anxiety, ACS, pneumonia, essential hypertension, PVCs, and electrolyte abnormality. Patient's blood pressure stays around the 160s while in the emergency room. Oh not concerned this hypertensive emergency. Her workup is significant for an elevated D-dimer of 1.06. Troponin is normal at 8 and consistent with how it was earlier this weekend. TSH is normal. CTA is added on which shows COPD with mild cystic emphysematous changes and chronic interstitial fibrosis of both lungs but no other acute process. Urinalysis today is consistent with urinary tract infection with 10-25 white blood cells, 1+ bacteria and 500 leukocyte esterase. This is markedly different than how it was on Sunday. Urine culture sent and patient will be started on Keflex. Given first dose to the emergency room. She has mild but chronic appearing hypokalemia with potassium 3.4. Patient is given a dose of potassium supplement in the emergency room. She is counseled on her findings. She will follow-up with her primary care doctor for blood pressure management, resolution of UTI as well as for the COPD/emphysematous findings on her CT of her chest. Patient does not have any tach arrhythmia while in the emergency room. Patient agreeable this plan of care. Will continue keeping a blood pressure log. Given return precautions. Discharged home in stable condition. Lab Data Attestation: I reviewed the patient's lab results. Labs: Laboratory Results - last 24 hr 10/28/24 10/28/24 08:49 11:19 WBC 9.3 RBC 5.08 Hgb 14.8 Hct 44.0 MCV 86.6 MCH 29.1 MCHC 33.6 RDW Std Deviation 39.9 RDW Coeff of Stacey 12.7 Plt Count 266 MPV 11.1 Immature Gran % (Auto) 0.300 Neut % (Auto) 58.7 Lymph % (Auto) 31.4 [place] % (Auto) 7.7 Eos % (Auto) 1.5 Baso % (Auto) 0.4 Absolute Neuts (auto) 5.4 Absolute Lymphs (auto) 2.91 Nucleated RBC % 0 D-Dimer Quant (PE/DVT) 1.06 H* Sodium 137 Potassium 3.4 L Chloride 103 Carbon Dioxide 29.0 Anion Gap 5 BUN 20 H Creatinine 0.72 Estim Creat Clear Calc 67.60 Est GFR (MDRD) Af Amer 100 Est GFR (MDRD) Non-Af 83 BUN/Creatinine Ratio 27.6 H Glucose 120 H Calcium 9.3 Magnesium 2.1 Troponin I High Sens 8 TSH 1.670 Urine Color Yellow Urine Clarity Sl. Cloudy Urine pH 7.0 Ur Specific [place] 1.005 Urine Protein Negative Urine Glucose (UA) Normal Urine Ketones Negative Urine Occult Blood 10 H Urine Nitrite Negative Urine Bilirubin Negative Urine Urobilinogen Normal Ur Leukocyte Esterase 500 H Urine RBC 0-5 SEEN Urine WBC 10-25 SEEN Ur Squamous Epith Cells 5-10 SEEN Urine Bacteria 1+ Urine Mucus 0 SEEN Radiography Diagnostic Testing: Clinical Impression(s) from Imaging Studies Chest CTA 10/28/24 09:28 IMPRESSION: 1. COPD, mild cystic emphysematous changes, and chronic interstitial fibrosis of both lungs noted. No visualized pneumonic consolidation or pleural effusion or active pulmonary edema. No nodules are present. No visualized spiculated lesions. 2. No demonstrated pulmonary embolism or arterial dissection. Electronically Signed: Cm South MD at 10:49 EST , Rhythm Strip Rhythm Strip: Sinus Rhythm Rate: 55 Ectopy: None EKG Initial EKG: Attestation: I personally reviewed and interpreted this EKG as follows: Interpretation: Sinus Bradycardia Comments: Sinus bradycardia rate of 55 bpm Normal axis Normal intervals Normal ST segments Discharge Plan Triage Chief Complaint: Palpitations ED Provider: Mallorie Fierro Dx/Rx/DC Orders Clinical Impression: Elevated blood pressure reading, Hypertension, Acute UTI, Hypokalemia Instructions: ED Hypertension, Established, ED Hypokalemia, ED Palpitations Prescriptions: New cephalexin 500 mg capsule 500 mg PO Q12 Qty: 10 0RF No Action lisinopril 20 mg tablet 20 mg PO QDAY cholecalciferol (vitamin D3) 25 mcg (1,000 unit) tablet 25 mcg PO BID coenzyme Q10 100 mg tablet 100 mg PO QDAY aspirin 81 MG tablet,chewable 81 mg PO DAILY@0800 hydrochlorothiazide 25 mg tablet 25 mg PO DAILY metoprolol tartrate 50 mg tablet 50 mg PO BID Primary Care Provider: Betty Gutierrez Referrals: Betty Gutierrez, [employer]-C [Primary Care Provider] - Activity Restrictions/Additional Instructions: Your potassium was mildly low today and you were given oral replacement. Your blood pressure was mildly elevated but you do not have any finding consistent with endorgan damage from hypertension. It is safe you to continue outpatient follow-up. Urinalysis was consistent with urinary tract infection we started you on Keflex for this. Cultures pending. Will contact you if your culture grows a bacteria that requires change in your antibiotics. Your CT did show chronic appearing changes of the lung consistent with COPD. Please follow-up with your primary care doctor for this. Print Language: Malagasy Disposition Disposition: Home, Self Care
[2024-10-28 09:07] LABS: Absolute Lymphocyte Count 2.91 X10^3/uL (0.83-4.51); Absolute Neutrophil Count 5.4 X10^3/uL (2.0-7.7); Basophil# 0.04 X10^3/uL; Basophil% 0.4 % (0-1); Eosinophil# 0.14 X10^3/uL; Eosinophils% 1.5 % (0-5); Hemoglobin 14.8 g/dL (12.0-15.0); Lymphocyte # 2.91 X10^3/ul (0.83-4.51); Lymphocyte % 31.4 % (19-41); Mean Corp Hgb Conc 33.6 g/dL (32-36); Mean Corpuscular Hgb 29.1 pg (27.0-32.0); Mean Corpuscular Volume 86.6 fL (81-99); Mean Platelet Vol. 11.1 fl (6.2-12.0); Monocyte# 0.71 X10^3/uL; Monocyte% 7.7 % (0-10); NRBC Flagged by Analyzer 0 % (0-5); Neutrophil # 5.43 X10^3/uL (2.7-7.7); Neutrophil % 58.7 % (47-70); Platelet Count 266 K/mm3 (150-450); RBC Distribution Width CV 12.7 % (11.6-14.6); RBC Distribution Width SD 39.9 fl (35.1-43.9); Red Blood Count 5.08 M/mm3 (4.2-5.4); White Blood Count 9.3 K/mm3 (4.4-11.0)
[2024-10-28 09:21] LABS: D-Dimer Quantitative (DVT/PE) 1.06 FEU/ug/m (0.27-0.49)
--- NOTE | 2024-10-28 09:28 | CT_ITS ---
STUDY: CTA CHEST REASON FOR EXAM: Female, 79 years old. palpitations, elevted dimer RADIATION DOSAGE (If Supplied By Facility): CTDIvol = ( 19.51 ) mGy, DLP = ( 794.83 ) mGycm TECHNIQUE: The examination was performed with the intravenous administration of IV 100mL Isovue-370. Post-processing of the angiographic images was performed, with multiplanar reformation and 3D reconstruction. Individualized dose optimization techniques were used for this CT. COMPARISON: CT of the chest dated April 25, 2019. FINDINGS: COPD, mild cystic emphysematous changes, and chronic interstitial fibrosis of both lungs noted. No visualized pneumonic consolidation or pleural effusion or active pulmonary edema. No nodules are present. No visualized spiculated lesions. Normal enhancement of the main pulmonary artery and right and left pulmonary arteries. Normal enhancement of the bilateral peripheral pulmonary arteries. There is no demonstrated pulmonary embolism. There is atherosclerotic calcification of the aortic arch with tortuosity. There is no demonstrated aortic dissection. Normal heart and pericardium. There are calcifications of the coronary arteries. Normal mediastinum. Normal hilar regions. Normal visualized trachea and bronchi. The lungs are well expanded. Normal pleura. Normal chest wall structures. There are degenerative changes of thoracic spine. Visualized upper abdomen: Small hiatal hernia noted. The remaining visualized structures are unremarkable. CT/CTA Chest W/WO Contrast IMPRESSION: 1. COPD, mild cystic emphysematous changes, and chronic interstitial fibrosis of both lungs noted. No visualized pneumonic consolidation or pleural effusion or active pulmonary edema. No nodules are present. No visualized spiculated lesions. 2. No demonstrated pulmonary embolism or arterial dissection. Electronically Signed: Cm South MD at 10:49 EST Reading Location ID and State: [facility] / [place] , Service support ,
[2024-10-28 09:35] LABS: Anion Gap 5 (5-15); BUN 20 mg/dL (7-18); BUN/Creat Ratio 27.6 RATIO (10-20); Calcium,Total 9.3 mg/dL (8.5-10.1); Chloride 103 mmol/L (98-107); Creatinine, Serum 0.72 mg/dL (0.55-1.02); EST Glomerular Filtration Rate 83 mL/min (>60); Est Glom Filt Rate - Afr Amer 100 mL/min (>60); Glucose 120 mg/dL (74-106); Magnesium 2.1 mg/dL (1.6-2.6); Potassium 3.4 mmol/L (3.5-5.1); Sodium Level 137 mmol/L (136-145); Troponin-I HS 8 pg/mL (3.0-54.0)
[2024-10-28 10:32] VITALS: BP 168/77; PULSE 55; RESP 18; O2SAT 94
[2024-10-28 11:24] LABS: Mucous, Urine 0 SEEN /hpf (<or=2+)
[2024-10-28 11:25] LABS: Color, Urine Yellow (Yellow); Glucose, Dipstick Normal (Normal); Ketone-Dipstick Negative (Negative); Leukocyte Esterase-Dipstick 500 /ul (Negative); Nitrite-Dipstick Negative (Negative); Occult Blood-Urine 10 /ul (Negative); Protein-Dipstick Negative (Negative); Specific Gravity, Urine 1.005 (1.002-1.030); Urine Bilirubin Dipstick Negative (Negative); Urine Clarity Sl. Cloudy (Clear); Urine Urobilinogen Normal (Normal)
[2024-10-28 11:37] LABS: Red Blood Cells-Urine 0-5 SEEN /hpf (0-5); Squamous Epithelial Cells - UA 5-10 SEEN /hpf (5-10); White Blood Cells 10-25 SEEN /hpf (0-5)
[2024-10-28 11:38] LABS: Bacteria 1+ /hpf (None Seen)
[2024-10-28 12:00] VITALS: BP 137/89; BP 142/80; PULSE 78; PULSE 89; RESP 16; TEMP 36.9; O2SAT 98; O2SAT 99
[2024-10-28] MEDS: Potassium Chloride Oral Tablet 20 MEQ PO (12:17)
[2024-10-28] MEDS: Cephalexin 250 MG Capsule 500 MG PO (12:17)
== END 2024-10-28 12:20 | disposition home or self-care (01) ==
PROVIDERS: Emergency Provider Emergency Medicine; PCP Nurse Practitioner Family; Visit Provider Emergency Medicine
DX: I10 Essential (primary) hypertension (principal); E11.9 Type 2 diabetes mellitus without complications; N39.0 Urinary tract infection, site not specified
CPT/HCPCS: 71275; 80048; 81001; 83735; 84443; 84484; 85025; 85379; 87086; 87088; 93005; 99285; Q9967; A4216

== ENCOUNTER → 2024-11-24 | Outpatient (CLI) | payer MEDICARE, SELFPAY | END | disposition home or self-care (01) | LOC: PSN 09:15 | PROVIDERS: PCP Nurse Practitioner Family; Referring Provider Nurse Practitioner Family; Visit Provider Nurse Practitioner Family | DX: J44.9 Chronic obstructive pulmonary disease, unspecified (principal) | CPT/HCPCS: 94060; 94726; 94729 ==

== ENCOUNTER 2025-02-10 12:28 | Emergency (ER) | payer MEDICARE, SELFPAY ==
[2025-02-10 12:28] VITALS: BP 190/80; BP 197/82; PULSE 56; PULSE 61; RESP 14; TEMP 36.1; O2SAT 100; O2SAT 99; BMI 41.7
[2025-02-10 13:05] VITALS: BP 188/82
--- NOTE | 2025-02-10 13:13 | EX.ED.DYSGE1 ---
HPI <BALTAZAR Aguirre - Last Filed: 02/10/25 14:10> History of Present Illness Chief Complaint: Hypertension Narrative Narrative: Patient presenting today with concerns for elevated blood pressure. She reports that she checks her blood pressure daily, and this morning it was around 200 systolic which is unusual for her, she reports it is normally around 130/140 systolic. She did take her blood pressure medication this morning, lisinopril, metoprolol, and HCTZ. She denies chest pain, headache, visual changes, dizziness, nausea, vomiting, and shortness of breath. She has no other acute complaints. She recently saw her PCP who debated increasing her antihypertensive medication but they were going to wait and keep an eye on it. PFS <BALTAZAR Aguirre - Last Filed: 02/10/25 14:10> [facility] Medical History Multiple thyroid nodules Thyroid nodule incidentally noted on imaging study Obesity Essential (primary) hypertension Diabetes mellitus type II, controlled Premature ventricular contractions Home Medications ?Medication ?Instructions ?Recorded ?Last Taken ?Type aspirin 81 mg chewable tablet 81 mg PO DAILY@0800 11/14/13 11/13/13 History hydrochlorothiazide 25 mg tablet 25 mg PO DAILY 07/09/20 Unknown History cholecalciferol (vitamin D3) 25 25 mcg PO BID 07/30/24 Unknown History mcg (1,000 unit) tablet coenzyme Q10 100 mg tablet 100 mg PO QDAY 07/30/24 Unknown History lisinopril 20 mg tablet 20 mg PO QDAY 07/30/24 Unknown History cephalexin 500 mg capsule 500 mg PO Q12 #10 CAPSULES 10/28/24 Unknown Rx metoprolol tartrate 50 mg tablet 75 mg PO BID 11/17/24 Unknown History Allergy/AdvReac Type Severity Reaction Status Date / Time No Known Allergies Allergy Verified 02/10/25 12:28 Family History Sister Sick sinus syndrome H/O cardiac radiofrequency ablation Mother , age 70 CAD (coronary artery disease) Heart disease Father Pacemaker Prostate cancer Cancer Skin cancer Surgical History Status post unilateral salpingo-oophorectomy History of cholecystectomy Social History Smoking Status: Never smoker alcohol intake: current alcohol intake frequency: holidays/special occasions only substance use type: does not use caffeine: Yes Type: coffee Number of servings: 2 ROS <BALTAZAR Aguirre - Last Filed: 02/10/25 14:10> ROS ED Constitutional Constitutional ED: Denies chills or fever(s) Eyes Eyes: Denies change in vision Cardiovascular Cardiovascular: Denies chest pain Respiratory/Chest Respiratory/Chest: Denies dyspnea Gastrointestinal Gastrointestinal: Denies abdominal pain, nausea or vomiting Musculoskeletal Musculoskeletal: Denies arthralgias or myalgias Integumentary Denies rash Neurologic Neurologic: Denies dizziness, headache(s) or weakness EXAM <BALTAZAR Aguirre - Last Filed: 02/10/25 14:10> Physical Exam Const Vital Signs: 02/10/25 12:28 02/10/25 12:28 02/10/25 12:50 Temperature 96.9 F L Temperature Source Temporal Pulse Rate 56 L 61 Respiratory Rate 14 14 Respiratory Effort Normal Non-Labored Respiratory Pattern Normal Blood Pressure 197/82 H 190/80 H Blood Pressure Mean 120 116 Pulse Ox 99 100 Oxygen Delivery Method Room Air 02/10/25 13:05 02/10/25 13:37 Temperature Temperature Source Pulse Rate 63 Respiratory Rate Respiratory Effort Respiratory Pattern Blood Pressure 188/82 H 168/77 H Blood Pressure Mean 117 107 Pulse Ox Oxygen Delivery Method Positive well nourished, well developed and no apparent distress General Appearance ED: well developed HEENT Reports normocephalic and head/scalp atraumatic Mouth ED: Yes moist mucous membranes normal Eyes PERRL and EOMs intact bilaterally Neck full ROM and supple Chest Wall inspection of chest normal Resp normal respiratory effort and clear to auscultation bilaterally Cardio regular rate and regular rhythm Back/Spine normal ROM and normal to inspection Extremity normal to inspection and full ROM Neuro oriented x3, CN's II-XII intact bilaterally, moves all extremities, no focal motor deficits and no sensory deficits noted Sensorium / Orientation: awake and alert Psych mental status grossly normal and thought process normal Skin no rashes or lesions noted and no wounds <Dr. Perez Good DO - Last Filed: 02/10/25 14:16> Physical Exam Const Vital Signs: 02/10/25 12:28 02/10/25 12:28 02/10/25 12:50 Temperature 96.9 F L Temperature Source Temporal Pulse Rate 56 L 61 Respiratory Rate 14 14 Respiratory Effort Normal Non-Labored Respiratory Pattern Normal Blood Pressure 197/82 H 190/80 H Blood Pressure Mean 120 116 Pulse Ox 99 100 Oxygen Delivery Method Room Air 02/10/25 13:05 02/10/25 13:37 Temperature Temperature Source Pulse Rate 63 Respiratory Rate Respiratory Effort Respiratory Pattern Blood Pressure 188/82 H 168/77 H Blood Pressure Mean 117 107 Pulse Ox Oxygen Delivery Method [facility] <BALTAZAR Aguirre - Last Filed: 02/10/25 14:10> [facility] Narrative Medical decision making narrative: Patient presenting today due to elevated blood pressure that started this morning. She has a history of hypertension and did take her medication this morning. It was around 200 systolic at home, prompting her to come in and be seen. She is asymptomatic regarding her elevated blood pressure. She is well-appearing and in no acute distress. Initially here it is 197/82, it then did go down to 188/82 on my evaluation. Basic labs will be obtained to assess for endorgan dysfunction. She takes metoprolol twice daily, I did give her her afternoon/evening dose here. Repeat blood pressure was 168/77. CBC and BMP are unremarkable. She did call her PCP while waiting who instructed her to begin doubling her lisinopril dose. I recommended she keep track of her blood pressure and follow-up closely with her PCP. She will be discharged home in stable condition. Lab Data Attestation: I reviewed the patient's lab results. Labs: Laboratory Results - last 24 hr 02/10/25 13:30 WBC 10.4 RBC 4.69 Hgb 13.6 Hct 40.0 MCV 85.3 MCH 29.0 MCHC 34.0 RDW Std Deviation 40.8 RDW Coeff of Stacey 13.2 Plt Count 252 MPV 11.2 Immature Gran % (Auto) 0.500 Neut % (Auto) 61.4 Lymph % (Auto) 28.5 [place] % (Auto) 7.7 Eos % (Auto) 1.6 Baso % (Auto) 0.3 Absolute Neuts (auto) 6.4 Absolute Lymphs (auto) 2.96 Nucleated RBC % 0 Sodium 138 Potassium 3.5 Chloride 100 Carbon Dioxide 25.9 Anion Gap 12 BUN 16 Creatinine 0.60 L Estim Creat Clear Calc 65.34 Est GFR (MDRD) Non-Af 92 BUN/Creatinine Ratio 26.5 H Glucose 103 H Calcium 9.2 <Dr. Perez Good, DO - Last Filed: 02/10/25 14:16> [facility] Lab Data Labs: Laboratory Results - last 24 hr 02/10/25 13:30 WBC 10.4 RBC 4.69 Hgb 13.6 Hct 40.0 MCV 85.3 MCH 29.0 MCHC 34.0 RDW Std Deviation 40.8 RDW Coeff of Stacey 13.2 Plt Count 252 MPV 11.2 Immature Gran % (Auto) 0.500 Neut % (Auto) 61.4 Lymph % (Auto) 28.5 [place] % (Auto) 7.7 Eos % (Auto) 1.6 Baso % (Auto) 0.3 Absolute Neuts (auto) 6.4 Absolute Lymphs (auto) 2.96 Nucleated RBC % 0 Sodium 138 Potassium 3.5 Chloride 100 Carbon Dioxide 25.9 Anion Gap 12 BUN 16 Creatinine 0.60 L Estim Creat Clear Calc 65.34 Est GFR (MDRD) Non-Af 92 BUN/Creatinine Ratio 26.5 H Glucose 103 H Calcium 9.2 Treatment and Re-Evaluation :: I have personally performed a face to face assessment of the patient and have reviewed the LUCIA Note. I performed a substantive portion of the visit including all aspects of the following. My hernandez findings include: History: Patient presents with elevated blood pressure that she noticed today. Patient states her blood pressure at home was 200 systolic. Patient denies any symptoms. Patient denies any chest pain or shortness of breath. Patient denies any neck pain or back pain. Patient denies any headaches. Patient denies any nausea or vomiting. Patient states she called her primary care physician. Patient states that her primary care physician wants to increase her lisinopril. Patient states she did not take an extra dose of this today. Exam: Vital signs are stable except for an elevated blood pressure of 197/82. Patient is afebrile. Patient is in no acute distress. Oral mucosa is pink and moist. Neck is supple. Trachea is midline. There is no JVD. Heart was regular rate and rhythm. Lungs are clear and equal bilaterally. Abdomen is soft. Bowel sounds are normal. There is no tenderness. Cranial nerves II through XII are intact. There are no focal motor or sensory deficits noted. Medical Decision Making: Differential diagnosis includes hypertensive urgency, hypertensive emergency, and uncontrolled hypertension. CBC will be obtained to assess for leukocytosis and anemia. Basic metabolic profile will be obtained to assess for electrolyte abnormality or renal function. Patient was given a dose of metoprolol here. The CBC was reviewed and was within normal limits. Basic metabolic profile was reviewed. Creatinine was slightly low at 0.6. Glucose was slightly elevated at 103. The remainder is within normal limits. Patient was advised of her findings. Patient was instructed to start her extra dose of lisinopril tomorrow. Patient was instructed to follow-up with her primary care physician in 5 to 7 days. Patient was instructed to keep a log of her blood pressures. Patient understood and was agreeable with the plan. All questions were answered. Discharge Plan Triage Chief Complaint: Hypertension ED Midlevel Provider: Tania Jarrett ED Provider: Perez Good Dx/Rx/DC Orders Clinical Impression: Hypertension Instructions: ED High Blood Pressure Hypertension Prescriptions: No Action lisinopril 20 mg tablet 20 mg PO QDAY cholecalciferol (vitamin D3) 25 mcg (1,000 unit) tablet 25 mcg PO BID coenzyme Q10 100 mg tablet 100 mg PO QDAY aspirin 81 MG tablet,chewable 81 mg PO DAILY@0800 hydrochlorothiazide 25 mg tablet 25 mg PO DAILY cephalexin 500 mg capsule 500 mg PO Q12 Qty: 10 0RF metoprolol tartrate 50 mg tablet 75 mg PO BID Primary Care Provider: Betty Gutierrez Referrals: Betty Gutierrez, RANDA-C [Primary Care Provider] - 3-5 Days Activity Restrictions/Additional Instructions: Follow-up with your PCP return for any worsening symptoms. Print Language: Macanese Disposition Disposition: Home, Self Care
[2025-02-10 13:37] VITALS: BP 168/77; PULSE 63
[2025-02-10] MEDS: Metoprolol Tartrate 50 MG Tablet PO (13:38)
[2025-02-10 13:57] LABS: Absolute Lymphocyte Count 2.96 X10^3/uL (0.83-4.51); Absolute Neutrophil Count 6.4 X10^3/uL (2.0-7.7); Anion Gap 12 (5-15); BUN 16 mg/dL (4-19); BUN/Creat Ratio 26.5 RATIO (10-20); Basophil# 0.03 X10^3/uL; Basophil% 0.3 % (0-1); Calcium,Total 9.2 mg/dL (7.6-11.0); Carbon Dioxide 25.9 mmol/L (21.0-32.0); Chloride 100 mmol/L (98-108); EST Glomerular Filtration Rate 92 (>60); Eosinophil# 0.17 X10^3/uL; Eosinophils% 1.6 % (0-5); Estimated Creatinine Clearance 65.34 ml/min (50-250); Glucose 103 mg/dL (70-99); Hemoglobin 13.6 g/dL (12.0-15.0); Lymphocyte # 2.96 X10^3/ul (0.83-4.51); Lymphocyte % 28.5 % (19-41); Mean Corpuscular Volume 85.3 fL (81-99); Mean Platelet Vol. 11.2 fl (6.2-12.0); Monocyte% 7.7 % (0-10); NRBC Flagged by Analyzer 0 % (0-5); Neutrophil # 6.36 X10^3/uL (2.7-7.7); Neutrophil % 61.4 % (47-70); Platelet Count 252 K/mm3 (150-450); Potassium 3.5 mmol/L (3.3-5.1); RBC Distribution Width CV 13.2 % (11.6-14.6); RBC Distribution Width SD 40.8 fl (35.1-43.9); Red Blood Count 4.69 M/mm3 (4.2-5.4); Sodium Level 138 mmol/L (133-145); White Blood Count 10.4 K/mm3 (4.4-11.0)
[2025-02-10 14:15] VITALS: BP 161/71; PULSE 61; RESP 16; TEMP 36.6; O2SAT 97
== END 2025-02-10 14:16 | disposition home or self-care (01) ==
PROVIDERS: Physician Assistant; Emergency Provider Emergency Medicine; PCP Nurse Practitioner Family; Visit Provider Emergency Medicine
DX: I10 Essential (primary) hypertension (principal); E11.9 Type 2 diabetes mellitus without complications
CPT/HCPCS: 80048; 85025; 99282; A4216

== ENCOUNTER → 2025-03-31 | Outpatient (CLI) | payer MEDICARE, SELFPAY ==
[2025-03-31 08:00] LABS: Absolute Neutrophil Count 3.9 X10^3/uL (2.0-7.7); Basophil# 0.03 X10^3/uL; Basophil% 0.4 % (0-1); Eosinophil# 0.21 X10^3/uL; Eosinophils% 2.7 % (0-5); Hematocrit 38.8 % (37-47); Hemoglobin 13.3 g/dL (12.0-15.0); Lymphocyte % 38.3 % (19-41); Mean Corp Hgb Conc 34.3 g/dL (32-36); Mean Corpuscular Hgb 29.4 pg (27.0-32.0); Mean Corpuscular Volume 85.7 fL (81-99); Mean Platelet Vol. 11.2 fl (6.2-12.0); Monocyte# 0.69 X10^3/uL; Monocyte% 8.8 % (0-10); NRBC Flagged by Analyzer 0 % (0-5); Neutrophil # 3.88 X10^3/uL (2.7-7.7); Neutrophil % 49.5 % (47-70); Platelet Count 238 K/mm3 (150-450); RBC Distribution Width CV 13.1 % (11.6-14.6); RBC Distribution Width SD 41.1 fl (35.1-43.9); Red Blood Count 4.53 M/mm3 (4.2-5.4); White Blood Count 7.8 K/mm3 (4.4-11.0)
[2025-03-31 08:01] LABS: Color, Urine Yellow (Yellow); Glucose, Dipstick Normal (Normal); Ketone-Dipstick Negative (Negative); Leukocyte Esterase-Dipstick 100 /ul (Negative); Nitrite-Dipstick Negative (Negative); Occult Blood-Urine 25 /ul (Negative); Protein-Dipstick 30 mg/dl (Negative); Specific Gravity, Urine 1.025 (1.002-1.030); Urine Bilirubin Dipstick Negative (Negative); Urine Clarity Sl. Cloudy (Clear); Urine Urobilinogen Normal (Normal)
[2025-03-31 08:57] LABS: ALB/GLOB Ratio 1.1 RATIO (0.9-2.4); AST(SGOT) 19 U/L (<=31); Alanine Aminotransfer ALT/SGPT 12 U/L (<=34); Albumin, Serum 3.8 g/dL (3.4-4.8); Alkaline Phosphatase 76 U/L (35-104); Anion Gap 9 (5-15); BUN 24 mg/dL (4-19); BUN/Creat Ratio 34.6 RATIO (10-20); Carbon Dioxide 27.4 mmol/L (21.0-32.0); Chloride 101 mmol/L (98-108); Cholesterol 152 mg/dL (<=200); EST Glomerular Filtration Rate 89 (>60); Globulin 3.4 g/dL (2.2-4.2); Glucose 103 mg/dL (70-99); High Density Lipoprotein 61 mg/dL; Low Density Lipoprotein Calc. 79 mg/dL; Potassium 3.8 mmol/L (3.3-5.1); Protein, Total 7.2 g/dL (5.9-8.4); Sodium Level 138 mmol/L (133-145); Total Bilirubin 0.52 mg/dL (0.00-1.30); Triglycerides 60 mg/dL; Very Low Density Lipoprotein 12 mg/dL (5-40)
== END | disposition home or self-care (01) ==
LOC: LAB 07:12
PROVIDERS: PCP Nurse Practitioner Family; Referring Provider Nurse Practitioner Family; Visit Provider Nurse Practitioner Family
DX: I65.29 Occlusion and stenosis of unspecified carotid artery (principal); R73.03 Prediabetes
CPT/HCPCS: 36415; 80053; 80061; 81002; 85025

== ENCOUNTER → 2025-08-20 | Outpatient (CLI) | payer MEDICARE, SELFPAY ==
[2025-08-20 10:26] LABS: Creatinine, Urine (random) 149.00 mg/dL (28.00-217.00); Microalbumin,Random Urine < 12.0 mg/L (<20 mg/L)
[2025-08-20 11:06] LABS: AST(SGOT) 19 U/L (<=31); Alanine Aminotransfer ALT/SGPT 15 U/L (<=34); Albumin, Serum 3.7 g/dL (3.4-4.8); Alkaline Phosphatase 79 U/L (35-104); Anion Gap 10 (5-15); BUN 17 mg/dL (4-19); BUN/Creat Ratio 24.1 RATIO (10-20); Calcium,Total 9.2 mg/dL (7.6-11.0); Carbon Dioxide 27.6 mmol/L (21.0-32.0); Chloride 102 mmol/L (98-108); Globulin 3.4 g/dL (2.2-4.2); Glucose 97 mg/dL (70-99); Potassium 4.4 mmol/L (3.3-5.1); Vitamin D,25 Hydroxy 34.4 ng/mL (30-100)
== END | disposition home or self-care (01) ==
PROVIDERS: PCP Nurse Practitioner Family; Referring Provider Nurse Practitioner Family; Visit Provider Nurse Practitioner Family
DX: E55.9 Vitamin D deficiency, unspecified (principal); I10 Essential (primary) hypertension; R73.03 Prediabetes
CPT/HCPCS: 36415; 80053; 82043; 82306; 82570

== ENCOUNTER → 2025-08-31 | Outpatient (CLI) | payer MEDICARE, SELFPAY ==
--- NOTE | 2025-08-31 12:10 | US_ITS ---
PROCEDURE: THYROID 08/31/2025 REASON FOR EXAM: MULTIPLE THYROID NODULES TECHNIQUE: Procedure Code: USTHY Modality: US Procedure: THYROID COMPARISON: Thyroid ultrasound on 10/11/2024 FINDINGS: Right thyroid lobe size: 3.9 x 1.7 x 1.9 cm Left thyroid lobe size: 4.3 x 2.3 x 1.4 cm Isthmus: 0.4 cm Background parenchymal echotexture is mildly heterogeneous Nodules: 1. Lobe: Right, Location: Lower, Size: 0.7 x 0.4 x 0.6 cm, Stability: Stable Composition: Cystic or mostly cystic (+0) Echogenicity: Anechoic (+0) Margin: Smooth (+0) Shape: Wider than tall (+0) Echogenic Foci: Macrocalcification (+1) TI-RADS: 2 2. Lobe: Left, Location: Upper, Size: 1.6 x 1.1 x 1.5 cm, Stability: Stable Composition: Cystic or mostly cystic (+0) Echogenicity: Anechoic (+0) Margin: Smooth (+0) Shape: Wider than tall (+0) Echogenic Foci: None (+0) TI-RADS: 1 3. Lobe: Left, Location: Lower, Size: 0.6 x 0.4 x 0.7 cm, Stability: Stable Composition: Cystic or mostly cystic (+0) Echogenicity: Anechoic (+0) Margin: Smooth (+0) Shape: Wider than tall (+0) Echogenic Foci: None (+0) TI-RADS: 1 4. Lobe: Left, Location: Mid, Size: 0.5 x 0.3 x 0.4 cm, Stability: Stable Composition: Solid or almost completely solid (+2) Echogenicity: Hypoechoic (+2) Margin: Smooth (+0) Shape: Wider than tall (+0) Echogenic Foci: None (+0) TI-RADS: 4 US/Thyroid IMPRESSION: 1. Multinodular thyroid as detailed above. No continued follow-up or FNA is r ecommended per ACR TI-RADS guidelines. 2. Mildly heterogeneous thyroid parenchyma, correlate with laboratory analysis for evidence of underlying disease. Reading Location: [facility]
== END | disposition home or self-care (01) ==
PROVIDERS: PCP Nurse Practitioner Family; Referring Provider Nurse Practitioner Family; Visit Provider Nurse Practitioner Family
DX: E04.2 Nontoxic multinodular goiter (principal)
CPT/HCPCS: 76536

== ENCOUNTER → 2025-10-26 | Outpatient (CLI) | payer MEDICARE, SELFPAY ==
--- NOTE | 2025-10-26 13:04 | BI_ITS ---
EXAM: SCRN MAMM (CAD)W/MONSERRAT BILAT DATE: 10/26/2025 CLINICAL HISTORY: F, Age 80 y/o , SCRN MAMM (CAD)W/MONSERRAT BILAT TECHNIQUE: Procedure Code: [id number] Modality: MG Procedure: SCRN MAMM (CAD)W/MONSERRAT BILAT COMPARISON: Prior exam(s) dated 09/14/2024, 09/21/2023, and 09/19/2022. FINDINGS: TISSUE DENSITY: The breasts are heterogeneously dense, which may obscure small masses. Bilateral Breast Mammographic Findings: There are no suspicious masses, suspicious cluster of microcalcifications, architectural distortion or secondary signs of malignancy identified in either breast. Benign-appearing round microcalcifications and secretory type calcifications are seen in both breasts. BI/SCRN MAMM (CAD)W/MONSERRAT BILAT IMPRESSION: Benign screening mammogram OVERALL FINAL ASSESSMENT BI-RADS 2: BENIGN RECOMMENDATION: Routine annual follow-up in 1 Year Additional Recommendation none A letter with findings and recommendations will be mailed to the patient. Reading Location: [id number]
== END | disposition home or self-care (01) ==
LOC: OPBI 13:03
PROVIDERS: PCP Nurse Practitioner Family; Referring Provider Nurse Practitioner Family; Visit Provider Nurse Practitioner Family
DX: Z12.31 Encounter for screening mammogram for malignant neoplasm of breast (principal)
CPT/HCPCS: 77063; 77067